=== PATIENT | male | born 1940 | race Caucasian/White ===

== ENCOUNTER 2019-03-12 16:09 | Inpatient (IN) ==
[2019-03-12] MEDS ORDERED: ATROPINE 1 MG/10 ML SYRINGE ONE (16:35)
[2019-03-12] MEDS ORDERED: ATROPINE 1 MG/10 ML SYRINGE IV STA (16:42)
[2019-03-12] MEDS ORDERED: DOPamine 800 MG/250 ML PREMIX IV PRN (16:42)
[2019-03-12] MEDS ORDERED: NOREPINEPHRINE 8 MG in SODIUM CHLORIDE 0.9% 242 ML IV PRN (16:44)
[2019-03-12] MEDS ORDERED: NOREPINEPHRINE 4 MG/4 ML VIAL IV ONE (16:44)
[2019-03-12] MEDS ORDERED: VANCOMYCIN INJ 1,000 MG in SODIUM CHLORIDE 0.9% 250 ML IV STA (16:50)
[2019-03-12 17:00] LABS: ABG Base Excess -26.7 MMOL/L (-2.5-2.5); ABG HCO3 6.2 MMOL/L (20-26); ABG Oxygen Saturation 93.9 % (95-100); ABG PCO2 38.2 MM HG (35-48); ABG PO2 90.2 MM HG (80-95); ABG TCO2 6.8 MMOL/L (23-27); Allen Test Positive; Pt O2 Delivery Device Ventilator
[2019-03-12 17:01] LABS: ABG PH 6.844 (7.35-7.45)
[2019-03-12] MEDS ORDERED: SODIUM BICARBONATE 50 MEQ/50 ML SYRINGE IV ONE ×2 (17:06→17:51)
[2019-03-12 17:14] LABS: Basophils % 0.4 % (0.0-0.8); Hematocrit 33.5 VOL% (42.0-52.0); Hemoglobin 10.6 GM/DL (14.0-18.0); Immature Granulocytes % 2.1 %; Immature Granulocytes Absolute 0.12 #; Lymphocytes # 0.5 10*3/uL (1.4-4.0); Lymphocytes % 9.5 % (21.2-54.2); Mean Corpuscular HGB Conc 31.6 GM/DL (32-36); Mean Corpuscular Volume 103.7 FL (87-102); Mean Platelet Volume 11.3 FL (9.6-12.0); Monocytes % 5.8 % (1.7-12.7); NRBC # 0.07 10*3/uL; Neutrophils % 82.2 % (38.7-73.9); Red Blood Count 3.23 MC/CUMM (3.8-5.5); Red Cell Distribution Width 14.4 % (9.3-17.3); White Blood Count 5.7 T/CUMM (4-12)
[2019-03-12 17:19] LABS: Platelet Count 74 T/CUMM (130-400)
[2019-03-12 17:22] LABS: INR 1.1; PT Patient Result 12.1 SECS (9.6-12.2)
[2019-03-12 17:33] LABS: Band Neutrophils 2 % (0-10); Lymphocytes 7 % (20-55); Nucleated Red Blood Cells 1 (0-5); Segmented Neutrophils 86 % (50-85); Total Cells Counted 100
[2019-03-12 17:34] LABS: Burr Cells 1+; Platelet Estimate Decreased
[2019-03-12] MEDS ORDERED: ALBUTEROL NEB SOLN 5 MG/ML 20 ML/BOTTLE CONT NEB STA ×2 (17:44→17:56)
[2019-03-12] MEDS ORDERED: DEXTROSE 50% 25 GM/50 ML VIAL IV STA (17:44)
[2019-03-12] MEDS ORDERED: INSULIN REGULAR 100 UNIT/ML IV STA (17:44)
[2019-03-12] MEDS ORDERED: CALCIUM CHLORIDE 1,000 MG/10 ML SYRINGE IV STA (17:44)
[2019-03-12] MEDS ORDERED: DEXTROSE 50% 25 GM/50 ML SYRINGE IV ONE (17:51)
[2019-03-12] MEDS ORDERED: LORazepam INJ 40 MG in DEXTROSE 5% 30 ML IV PRN (17:53)
[2019-03-12] MEDS ORDERED: PHENYLEPHRINE DRIP 40 MG/250 ML PREMIX IV PRN (17:53)
[2019-03-12] MEDS ORDERED: ALBUTEROL 2.5 MG/3 ML NEB RESP TX PRN (17:53)
[2019-03-12 17:55] LABS: Blood Urea Nitrogen 152 MG/DL (7-18); Calcium 7.2 MG/DL (8.5-10.1)
[2019-03-12 17:56] LABS: Albumin 3.4 G/DL (3.4-5.0); Glucose 281 MG/DL (74-106); Osmolality,Calculated 329.1 MOS/KG (273-304)
[2019-03-12 17:57] LABS: Alanine Aminotransferase 30 U/L (16-61); Alkaline Phosphatase 126 U/L (45-117); Aspartate Amino Transferase 45 U/L (0-37); Bilirubin,Total < 0.39 MG/DL (0.2-1.0); Total Protein 6.7 G/DL (6.4-8.3); Troponin I 0.027 NG/ML (0.00-0.045)
[2019-03-12] MEDS: SODIUM BICARB INJ 100 MEQ in DEXTROSE 5% 1,000 ML IV SCH ×2 (17:57→18:09)
[2019-03-12 17:58] LABS: CKMB % 4.1 %
[2019-03-12] MEDS ORDERED: SODIUM CHLORIDE 0.9% 3,800 ML IV ONE (17:58)
[2019-03-12] MEDS ORDERED: SODIUM CHLORIDE 0.9% 1,000 ML IV SCH (18:00)
[2019-03-12] MEDS ORDERED: SODIUM BICARBONATE 50 MEQ/50 ML VIAL IV STA (18:00)
[2019-03-12] MEDS: FAMOTIDINE 20 MG/2 ML VIAL IV SCH (18:09)
[2019-03-12] MEDS: MIDAZOLAM 100 MG in SODIUM CHLORIDE 0.9% 80 ML IV PRN (18:23)
[2019-03-12] MEDS ORDERED: AZTREONAM 2,000 MG in SODIUM CHLORIDE 0.9% 100 ML IV ONE (18:30)
[2019-03-12] MEDS: AZTREONAM 1,000 MG in SODIUM CHLORIDE 0.9% 100 ML IV SCH ×2 (18:56→19:05)
[2019-03-12] MEDS: HEPARIN 5,000 UNIT/1 ML VIAL SUBCUT SCH (19:02)
[2019-03-12] MEDS ORDERED: SODIUM POLYSTYRENE SULFATE 15 GM/60 ML BOTTLE RECTAL ONE (19:08)
[2019-03-12] MEDS ORDERED: GLUCAGON 1 MG VIAL IM PRN (19:10)
[2019-03-12] MEDS ORDERED: DEXTROSE 50% 25 GM/50 ML VIAL IV PRN (19:10)
[2019-03-12] MEDS: ALBUTEROL/IPRATROPIUM 3 ML NEB RESP TX SCH (19:17)
[2019-03-12] MEDS ORDERED: VANCOMYCIN INJ 2,500 MG in SODIUM CHLORIDE 0.9% 500 ML IV ONE (19:30)
[2019-03-12] MEDS ORDERED: LEVOFLOXACIN INJ 750 MG in PREMIX 1 EACH IV ONE (19:30)
[2019-03-12] MEDS ORDERED: VANCOMYCIN INJ 1,500 MG in SODIUM CHLORIDE 0.9% 500 ML IV ONE (19:30)
[2019-03-12 20:12] LABS: ABG Base Excess -23.9 MMOL/L (-2.5-2.5); ABG HCO3 7.7 MMOL/L (20-26); ABG Oxygen Saturation 96.3 % (95-100); ABG PCO2 35.2 MM HG (35-48); ABG TCO2 7.7 MMOL/L (23-27); Allen Test Positive; Pt O2 Delivery Device Ventilator
[2019-03-12] MEDS ORDERED: DEXTROSE 10% 250 ML IV PRN (20:12)
[2019-03-12 20:16] LABS: ABG PH 6.949 (7.35-7.45)
[2019-03-12] MEDS ORDERED: SODIUM BICARBONATE 50 MEQ/50 ML VIAL IV ONE (20:28)
[2019-03-12] MEDS: SODIUM BICARB INJ 100 MEQ in SODIUM CHLORIDE 0.45% 1,000 ML IV SCH (21:50)
[2019-03-12] MEDS ORDERED: SODIUM POLYSTYRENE SULFATE 15 GM/60 ML BOTTLE PO ONE (22:00)
[2019-03-12 22:01] LABS: Allen Test Positive; Pt O2 Delivery Device Ventilator
[2019-03-12 22:03] LABS: ABG Base Excess -21.7 MMOL/L (-2.5-2.5); ABG HCO3 8.9 MMOL/L (20-26); ABG Oxygen Saturation 96.7 % (95-100); ABG PCO2 34.2 MM HG (35-48); ABG PO2 99.6 MM HG (80-95); ABG TCO2 8.5 MMOL/L (23-27)
[2019-03-12 22:05] LABS: ABG PH 7.013 (7.35-7.45)
[2019-03-12 22:10] LABS: Calcium 7.6 MG/DL (8.5-10.1); Osmolality,Calculated 339.3 MOS/KG (273-304)
[2019-03-13] MEDS: NOREPINEPHRINE 16 MG in SODIUM CHLORIDE 0.9% 242 ML IV PRN ×2 (01:30→12:45)
[2019-03-13] MEDS: ALBUTEROL/IPRATROPIUM 3 ML NEB RESP TX SCH ×4 (01:41→19:05)
[2019-03-13] MEDS: INSULIN REGULAR 100 UNIT/ML SUBCUT SCH ×4 (02:04→18:36)
[2019-03-13] MEDS: AZTREONAM 1,000 MG in SODIUM CHLORIDE 0.9% 100 ML IV SCH ×4 (02:06→19:06)
[2019-03-13] MEDS: HEPARIN 5,000 UNIT/1 ML VIAL SUBCUT SCH ×3 (02:07→19:06)
[2019-03-13 03:35] LABS: ABG Base Excess -20.8 MMOL/L (-2.5-2.5); ABG HCO3 9.4 MMOL/L (20-26); ABG Oxygen Saturation 97.3 % (95-100); ABG PCO2 31.4 MM HG (35-48); ABG TCO2 8.5 MMOL/L (23-27); Allen Test Positive; Pt O2 Delivery Device Ventilator
[2019-03-13 03:42] LABS: ABG PH 7.056 (7.35-7.45)
[2019-03-13 04:33] LABS: Basophils % 0.4 % (0.0-0.8); Hematocrit 30.8 VOL% (42.0-52.0); Hemoglobin 10.2 GM/DL (14.0-18.0); Lymphocytes # 0.4 10*3/uL (1.4-4.0); Lymphocytes % 8.6 % (21.2-54.2); Mean Corpuscular HGB Conc 33.1 GM/DL (32-36); Mean Corpuscular Volume 100.3 FL (87-102); Mean Platelet Volume 11.8 FL (9.6-12.0); Monocytes % 6.4 % (1.7-12.7); NRBC # 0.09 10*3/uL; Neutrophils % 82.6 % (38.7-73.9); Platelet Count 70 T/CUMM (130-400); Red Blood Count 3.07 MC/CUMM (3.8-5.5); Red Cell Distribution Width 14.3 % (9.3-17.3)
[2019-03-13 04:55] LABS: Hypochromasia 1+; Platelet Estimate Decreased
[2019-03-13 05:02] LABS: Bilirubin,Total 0.4 MG/DL (0.2-1.0); Calcium 7.2 MG/DL (8.5-10.1); Osmolality,Calculated 334.4 MOS/KG (273-304)
[2019-03-13] MEDS ORDERED: SODIUM BICARBONATE 50 MEQ/50 ML VIAL IV ONE (06:03)
[2019-03-13] MEDS: SODIUM BICARB INJ 100 MEQ in SODIUM CHLORIDE 0.45% 1,000 ML IV SCH ×2 (07:03→07:25)
[2019-03-13] MEDS: SODIUM BICARB INJ 150 MEQ in STERILE WATER INJ 850 ML IV SCH ×2 (14:45→22:54)
[2019-03-13] MEDS ORDERED: TRACE ELEMENTS (5) 1 ML, MULTIVITAMIN INJ 10 ML in AMINO ACIDS 10% 700 ML, DEXTROSE 70%... IV SCH (17:00)
[2019-03-13] MEDS ORDERED: DEXTROSE 10% 1,000 ML IV PRN (17:00)
[2019-03-13] MEDS: FAMOTIDINE 20 MG/2 ML VIAL IV SCH (18:43)
[2019-03-13] MEDS: MIDAZOLAM 100 MG in SODIUM CHLORIDE 0.9% 80 ML IV PRN (20:20)
[2019-03-14] MEDS: ALBUTEROL/IPRATROPIUM 3 ML NEB RESP TX SCH ×5 (00:28→20:31)
[2019-03-14] MEDS: INSULIN REGULAR 100 UNIT/ML SUBCUT SCH ×5 (00:44→23:41)
[2019-03-14] MEDS: AZTREONAM 1,000 MG in SODIUM CHLORIDE 0.9% 100 ML IV SCH ×4 (01:01→20:55)
[2019-03-14] MEDS: fentaNYL INJ 1,250 MCG in SODIUM CHLORIDE 0.9% 225 ML IV PRN ×3 (02:26→21:26)
[2019-03-14] MEDS: HEPARIN 5,000 UNIT/1 ML VIAL SUBCUT SCH (03:42)
[2019-03-14 04:05] LABS: Basophils % 0.2 % (0.0-0.8); Eosinophils % 0.5 % (0.00-10.9); Hematocrit 27.3 VOL% (42.0-52.0); Immature Granulocytes % 0.7 %; Immature Granulocytes Absolute 0.03 #; Lymphocytes # 0.4 10*3/uL (1.4-4.0); Lymphocytes % 9.6 % (21.2-54.2); Mean Corpuscular Volume 99.3 FL (87-102); Mean Platelet Volume 11.9 FL (9.6-12.0); Monocytes % 9.3 % (1.7-12.7); NRBC # 0.04 10*3/uL; Neutrophils % 79.7 % (38.7-73.9); Platelet Count 62 T/CUMM (130-400); Red Blood Count 2.75 MC/CUMM (3.8-5.5); Red Cell Distribution Width 14.8 % (9.3-17.3); White Blood Count 4.3 T/CUMM (4-12)
[2019-03-14 04:24] LABS: ABG Base Excess -13.7 MMOL/L (-2.5-2.5); ABG HCO3 13.8 MMOL/L (20-26); ABG Oxygen Saturation 92.7 % (95-100); ABG PCO2 39.1 MM HG (35-48); ABG PO2 76.4 MM HG (80-95); ABG TCO2 13.5 MMOL/L (23-27); Allen Test Positive; Pt O2 Delivery Device Ventilator
[2019-03-14 04:29] LABS: Albumin 2.5 G/DL (3.4-5.0); Bilirubin,Total 0.4 MG/DL (0.2-1.0); Calcium 6.5 MG/DL (8.5-10.1); Total Protein 5.5 G/DL (6.4-8.3)
[2019-03-14 04:30] LABS: Prealbumin 14.3 MG/DL (20-40)
[2019-03-14 04:56] LABS: Band Neutrophils 1 % (0-10); Eosinophils 1 % (0-10); Lymphocytes 12 % (20-55); Nucleated Red Blood Cells 2 (0-5); Segmented Neutrophils 82 % (50-85); Total Cells Counted 100
[2019-03-14 05:04] LABS: Hypochromasia Slight; Platelet Estimate Decreased
[2019-03-14 06:20] LABS: HDL Cholesterol 21 MG/DL (40-60); Risk Ratio 2.38; Triglycerides 130 MG/DL (2-150)
[2019-03-14] MEDS: SODIUM BICARB INJ 150 MEQ in STERILE WATER INJ 850 ML IV SCH ×3 (07:07→15:44)
[2019-03-14] MEDS: MIDAZOLAM 100 MG in SODIUM CHLORIDE 0.9% 80 ML IV PRN ×2 (07:25→23:35)
[2019-03-14] MEDS ORDERED: VANCOMYCIN INJ 1,000 MG in SODIUM CHLORIDE 0.9% 250 ML IV PRN (11:39)
[2019-03-14] MEDS: FAT EMULSION 20% 250 ML IV SCH (14:05)
[2019-03-14 15:13] LABS: Hepatitis B Core IgM Quant 0.18 Index; Hepatitis B Surface Ag Quant < 0.10 Index; Hepatitis B Surface Ag Result Negative (Negative); Hepatitis C Virus Ab Quant 0.06 Index; Hepatitis C Virus Ab Result Negative (Negative)
[2019-03-14] MEDS ORDERED: VANCOMYCIN INJ 1,000 MG in SODIUM CHLORIDE 0.9% 250 ML IV ONE (17:00)
[2019-03-14] MEDS ORDERED: TRACE ELEMENTS (5) 1 ML, MULTIVITAMIN INJ 10 ML, INSULIN REGULAR 50 UNIT in AMINO ACIDS... IV SCH (17:00)
[2019-03-14] MEDS ORDERED: TRACE ELEMENTS (5) 1 ML, MULTIVITAMIN INJ 10 ML in AMINO ACIDS 10% 700 ML, DEXTROSE 70%... IV SCH (17:00)
[2019-03-14] MEDS: FAMOTIDINE 20 MG/2 ML VIAL IV SCH (17:29)
[2019-03-14] MEDS ORDERED: HEPARIN 10,000 UNIT/10 ML VIAL IV PRN (17:37)
[2019-03-14] MEDS: NOREPINEPHRINE 16 MG in SODIUM CHLORIDE 0.9% 234 ML IV PRN (18:43)
[2019-03-14] MEDS: LEVOFLOXACIN INJ 500 MG in PREMIX 1 EACH IV SCH (20:55)
[2019-03-15] MEDS: SODIUM BICARB INJ 150 MEQ in STERILE WATER INJ 850 ML IV SCH ×4 (00:39→18:28)
[2019-03-15] MEDS: AZTREONAM 1,000 MG in SODIUM CHLORIDE 0.9% 100 ML IV SCH ×3 (00:41→18:09)
[2019-03-15] MEDS: ALBUTEROL/IPRATROPIUM 3 ML NEB RESP TX SCH ×4 (01:03→18:53)
[2019-03-15] MEDS: fentaNYL INJ 1,250 MCG in SODIUM CHLORIDE 0.9% 225 ML IV PRN ×3 (02:28→13:52)
[2019-03-15 04:06] LABS: Basophils % 0.6 % (0.0-0.8); Eosinophils # 0.1 10*3/uL (0.0-0.87); Eosinophils % 2.3 % (0.00-10.9); Hematocrit 29.9 VOL% (42.0-52.0); Hemoglobin 10.3 GM/DL (14.0-18.0); Immature Granulocytes % 1.5 %; Immature Granulocytes Absolute 0.07 #; Lymphocytes # 0.8 10*3/uL (1.4-4.0); Lymphocytes % 17.6 % (21.2-54.2); Mean Corpuscular HGB Conc 34.4 GM/DL (32-36); Mean Corpuscular Volume 96.5 FL (87-102); Mean Platelet Volume 11.9 FL (9.6-12.0); Monocytes % 12.1 % (1.7-12.7); NRBC # 0.09 10*3/uL; Neutrophils % 65.9 % (38.7-73.9); Red Cell Distribution Width 14.7 % (9.3-17.3); White Blood Count 4.7 T/CUMM (4-12)
[2019-03-15 04:07] LABS: Platelet Count 40 T/CUMM (130-400)
[2019-03-15 04:21] LABS: Alanine Aminotransferase 18 U/L (16-61); Alkaline Phosphatase 79 U/L (45-117); Aspartate Amino Transferase 20 U/L (0-37); Bilirubin,Total < 0.39 MG/DL (0.2-1.0); Blood Urea Nitrogen 110 MG/DL (7-18); Calcium 6.5 MG/DL (8.5-10.1); Glucose 215 MG/DL (74-106); Osmolality,Calculated 319.4 MOS/KG (273-304); Total Protein 5.2 G/DL (6.4-8.3)
[2019-03-15] MEDS: INSULIN REGULAR 100 UNIT/ML SUBCUT SCH ×3 (05:45→18:34)
[2019-03-15 06:28] LABS: Band Neutrophils 1 % (0-10); Eosinophils 2 % (0-10); Hypochromasia 1+; Lymphocytes 15 % (20-55); Microcytosis Slight; Nucleated Red Blood Cells 1 (0-5); Ovalocytes Slight; Segmented Neutrophils 76 % (50-85); Total Cells Counted 100
[2019-03-15 06:29] LABS: Platelet Estimate Decreased; Tear Drop Cells Slight
[2019-03-15] MEDS: NOREPINEPHRINE 16 MG in SODIUM CHLORIDE 0.9% 234 ML IV PRN (07:00)
[2019-03-15 07:19] LABS: ABG Base Excess -2.9 MMOL/L (-2.5-2.5); ABG HCO3 21.9 MMOL/L (20-26); ABG Oxygen Saturation 96.2 % (95-100); ABG PCO2 39.3 MM HG (35-48); ABG PO2 83.9 MM HG (80-95); ABG TCO2 20.4 MMOL/L (23-27); Allen Test Positive; Pt O2 Delivery Device Ventilator
[2019-03-15] MEDS: MIDAZOLAM 100 MG in SODIUM CHLORIDE 0.9% 80 ML IV PRN (09:17)
[2019-03-15] MEDS ORDERED: SODIUM CHLORIDE 0.9% 1,000 ML IV PRN (13:40)
[2019-03-15] MEDS: FAT EMULSION 20% 250 ML IV SCH (14:28)
[2019-03-15] MEDS ORDERED: ELECTROLYTE CONCENTRATE 40 ML, TRACE ELEMENTS (5) 1 ML, MULTIVITAMIN INJ 10 ML, INSULIN... IV SCH (17:00)
[2019-03-15] MEDS ORDERED: VANCOMYCIN INJ 1,000 MG in SODIUM CHLORIDE 0.9% 250 ML IV ONE (17:00)
[2019-03-15] MEDS ORDERED: DIGOXIN 0.5 MG/2 ML AMP IV ONE (17:03)
[2019-03-15] MEDS: FAMOTIDINE 20 MG/2 ML VIAL IV SCH (18:09)
[2019-03-15 19:31] LABS: Basophils % 0.6 % (0.0-0.8); Eosinophils # 0.1 10*3/uL (0.0-0.87); Eosinophils % 1.2 % (0.00-10.9); Hematocrit 27.4 VOL% (42.0-52.0); Hemoglobin 9.3 GM/DL (14.0-18.0); Immature Granulocytes % 1.7 %; Immature Granulocytes Absolute 0.11 #; Lymphocytes # 0.7 10*3/uL (1.4-4.0); Lymphocytes % 10.5 % (21.2-54.2); Mean Corpuscular HGB Conc 33.9 GM/DL (32-36); Mean Corpuscular Volume 98.9 FL (87-102); Mean Platelet Volume 11.8 FL (9.6-12.0); Monocytes % 9.6 % (1.7-12.7); NRBC # 0.04 10*3/uL; Neutrophils % 76.4 % (38.7-73.9); Platelet Count 65 T/CUMM (130-400); Red Blood Count 2.77 MC/CUMM (3.8-5.5); White Blood Count 6.5 T/CUMM (4-12)
[2019-03-15 19:48] LABS: Calcium 6.7 MG/DL (8.5-10.1); Osmolality,Calculated 305.8 MOS/KG (273-304)
[2019-03-15 19:53] LABS: Eosinophils 3 % (0-10); Hypochromasia Slight; Lymphocytes 14 % (20-55); Nucleated Red Blood Cells 1 (0-5); Platelet Estimate Decreased; Segmented Neutrophils 79 % (50-85); Total Cells Counted 100
[2019-03-16] MEDS: AZTREONAM 1,000 MG in SODIUM CHLORIDE 0.9% 100 ML IV SCH ×4 (00:24→17:01)
[2019-03-16] MEDS: INSULIN REGULAR 100 UNIT/ML SUBCUT SCH ×2 (00:24→06:10)
[2019-03-16] MEDS: ALBUTEROL/IPRATROPIUM 3 ML NEB RESP TX SCH ×4 (01:45→19:37)
[2019-03-16] MEDS: SODIUM BICARB INJ 150 MEQ in STERILE WATER INJ 850 ML IV SCH ×5 (03:15→21:20)
[2019-03-16 03:41] LABS: ABG Base Excess 0.5 MMOL/L (-2.5-2.5); ABG HCO3 25.6 MMOL/L (20-26); ABG Oxygen Saturation 94.5 % (95-100); ABG PCO2 43.3 MM HG (35-48); ABG PO2 80.7 MM HG (80-95); Allen Test Positive; Pt O2 Delivery Device Ventilator
[2019-03-16 04:25] LABS: Basophils % 0.3 % (0.0-0.8); Eosinophils # 0.1 10*3/uL (0.0-0.87); Eosinophils % 1.4 % (0.00-10.9); Hematocrit 25.9 VOL% (42.0-52.0); Hemoglobin 8.7 GM/DL (14.0-18.0); Immature Granulocytes % 1.3 %; Immature Granulocytes Absolute 0.09 #; Lymphocytes # 0.8 10*3/uL (1.4-4.0); Lymphocytes % 10.5 % (21.2-54.2); Mean Corpuscular HGB Conc 33.6 GM/DL (32-36); Mean Corpuscular Volume 98.5 FL (87-102); Mean Platelet Volume 11.9 FL (9.6-12.0); Monocytes % 8.6 % (1.7-12.7); NRBC # 0.05 10*3/uL; Neutrophils % 77.9 % (38.7-73.9); Platelet Count 61 T/CUMM (130-400); Red Blood Count 2.63 MC/CUMM (3.8-5.5); Red Cell Distribution Width 14.9 % (9.3-17.3); White Blood Count 7.1 T/CUMM (4-12)
[2019-03-16 04:50] LABS: Bilirubin,Total 0.4 MG/DL (0.2-1.0); Calcium 6.9 MG/DL (8.5-10.1); Osmolality,Calculated 316.5 MOS/KG (273-304); Total Protein 5.6 G/DL (6.4-8.3)
[2019-03-16 04:51] LABS: Band Neutrophils 3 % (0-10); Eosinophils 3 % (0-10); Hypochromasia 1+; Lymphocytes 13 % (20-55); Microcytosis Slight; Platelet Estimate Decreased; Segmented Neutrophils 72 % (50-85); Total Cells Counted 100
[2019-03-16] MEDS ORDERED: POTASSIUM CHLORIDE 20 MEQ/15 ML UDCUP PER TUBE ONE (09:00)
[2019-03-16] MEDS ORDERED: DEXTROSE 50% 25 GM/50 ML VIAL IV PRN (10:07)
[2019-03-16] MEDS ORDERED: SODIUM CHLORIDE 0.9% 1,000 ML IV PRN (10:12)
[2019-03-16] MEDS: INSULIN LISPRO 100 UNIT/ML SUBCUT SCH ×3 (11:59→21:19)
[2019-03-16] MEDS: SODIUM CHLORIDE 0.9% 250 ML IV SCH (15:20)
[2019-03-16] MEDS: FAT EMULSION 20% 250 ML IV SCH (15:45)
[2019-03-16] MEDS ORDERED: ELECTROLYTE CONCENTRATE 40 ML, TRACE ELEMENTS (5) 1 ML, MULTIVITAMIN INJ 10 ML, INSULIN... IV SCH (17:00)
[2019-03-16] MEDS: FAMOTIDINE 20 MG/2 ML VIAL IV SCH (17:01)
[2019-03-16] MEDS: LEVOFLOXACIN INJ 500 MG in PREMIX 1 EACH IV SCH (21:20)
[2019-03-16] MEDS ORDERED: MORPHINE 4 MG/1 ML VIAL IV PRN (22:27)
[2019-03-16] MEDS: PROPOFOL 1,000 MG/100 ML BOTTLE IV SCH (23:41)
[2019-03-17] MEDS: AZTREONAM 1,000 MG in SODIUM CHLORIDE 0.9% 100 ML IV SCH ×5 (00:17→23:01)
[2019-03-17] MEDS: INSULIN LISPRO 100 UNIT/ML SUBCUT SCH ×6 (00:17→20:23)
[2019-03-17] MEDS: ALBUTEROL/IPRATROPIUM 3 ML NEB RESP TX SCH ×4 (00:50→19:30)
[2019-03-17 02:55] LABS: Apearance,Urine Slightly Hazy (Clear); Bilirubin,Urine Negative (Negative); Blood, Urine Large mg/dL (Negative); Glucose,Urine (UA) Negative (Negative); Ketones,Urine Negative (Negative); Mucus,Urine Occasional /LPF (Occasional); Nitrite,Urine Negative (Negative); Protein,Urine Negative; RBC,Urine 134 /HPF (0-4); Urine Color Yellow (Yellow); Urine Specific Gravity 1.014 (1.001-1.035); Urine Urobilinogen < 2.0 EU/DL (0.2-1.0); WBC,Urine 19 /HPF (0-6)
[2019-03-17 03:41] LABS: ABG Base Excess 3.6 MMOL/L (-2.5-2.5); ABG HCO3 28.2 MMOL/L (20-26); ABG Oxygen Saturation 97.7 % (95-100); ABG PCO2 42.9 MM HG (35-48); ABG PH 7.435 (7.35-7.45); ABG PO2 137.3 MM HG (80-95); ABG TCO2 29.5 MMOL/L (23-27); Allen Test Positive; Pt O2 Delivery Device Ventilator
[2019-03-17] MEDS: SODIUM CHLORIDE 0.9% 250 ML IV SCH (05:30)
[2019-03-17 05:46] LABS: Basophils % 0.3 % (0.0-0.8); Eosinophils # 0.1 10*3/uL (0.0-0.87); Eosinophils % 1.9 % (0.00-10.9); Hematocrit 23.5 VOL% (42.0-52.0); Hemoglobin 7.8 GM/DL (14.0-18.0); Immature Granulocytes % 1.7 %; Immature Granulocytes Absolute 0.12 #; Lymphocytes # 0.4 10*3/uL (1.4-4.0); Lymphocytes % 5.7 % (21.2-54.2); Mean Corpuscular HGB Conc 33.2 GM/DL (32-36); Mean Corpuscular Volume 99.6 FL (87-102); Mean Platelet Volume 11.1 FL (9.6-12.0); Monocytes % 6.7 % (1.7-12.7); NRBC # 0.05 10*3/uL; Neutrophils % 83.7 % (38.7-73.9); Platelet Count 94 T/CUMM (130-400); Red Blood Count 2.36 MC/CUMM (3.8-5.5); Red Cell Distribution Width 14.7 % (9.3-17.3); White Blood Count 6.9 T/CUMM (4-12)
[2019-03-17 06:08] LABS: Eosinophils 2 % (0-10); Lymphocytes 7 % (20-55); Nucleated Red Blood Cells 1 (0-5); Segmented Neutrophils 85 % (50-85); Total Cells Counted 100
[2019-03-17 06:09] LABS: Hypochromasia 1+; Microcytosis Slight; Ovalocytes Slight; Platelet Estimate Decreased
[2019-03-17 06:14] LABS: Alanine Aminotransferase 14 U/L (16-61); Albumin 1.7 G/DL (3.4-5.0); Alkaline Phosphatase 69 U/L (45-117); Aspartate Amino Transferase 16 U/L (0-37); Bilirubin,Total < 0.39 MG/DL (0.2-1.0); Blood Urea Nitrogen 114 MG/DL (7-18); Calcium 7.2 MG/DL (8.5-10.1); Glucose 274 MG/DL (74-106); Total Protein 5.3 G/DL (6.4-8.3)
[2019-03-17] MEDS: SODIUM BICARB INJ 150 MEQ in STERILE WATER INJ 850 ML IV SCH (06:24)
[2019-03-17] MEDS: PROPOFOL 1,000 MG/100 ML BOTTLE IV SCH ×3 (09:16→22:57)
[2019-03-17] MEDS ORDERED: POTASSIUM CHLORIDE 20 MEQ/15 ML UDCUP PER TUBE PRN (09:30)
[2019-03-17] MEDS: METOPROLOL TARTRATE 25 MG TABLET PO SCH ×2 (09:51→20:23)
[2019-03-17] MEDS: FAT EMULSION 20% 250 ML IV SCH (15:47)
[2019-03-17] MEDS: ELECTROLYTE CONCENTRATE 40 ML, TRACE ELEMENTS (5) 1 ML, MULTIVITAMIN INJ 10 ML, INSULIN... IV SCH (16:46)
[2019-03-17] MEDS ORDERED: VANCOMYCIN INJ 1,000 MG in SODIUM CHLORIDE 0.9% 250 ML IV ONE (18:00)
[2019-03-17] MEDS: FAMOTIDINE 20 MG/2 ML VIAL IV SCH (18:08)
[2019-03-17] MEDS ORDERED: SODIUM CHLORIDE 0.9% 250 ML IV ONE (19:12)
[2019-03-18] MEDS: INSULIN LISPRO 100 UNIT/ML SUBCUT SCH ×7 (00:09→23:43)
[2019-03-18] MEDS: ALBUTEROL/IPRATROPIUM 3 ML NEB RESP TX SCH ×4 (00:25→20:00)
[2019-03-18] MEDS: PROPOFOL 1,000 MG/100 ML BOTTLE IV SCH ×8 (02:01→22:56)
[2019-03-18 04:04] LABS: ABG Base Excess 3.5 MMOL/L (-2.5-2.5); ABG HCO3 27.5 MMOL/L (20-26); ABG Oxygen Saturation 97.6 % (95-100); ABG PCO2 42.3 MM HG (35-48); ABG PH 7.432 (7.35-7.45); ABG PO2 99.4 MM HG (80-95); ABG TCO2 24.3 MMOL/L (23-27); Pt O2 Delivery Device Ventilator
[2019-03-18 04:52] LABS: Basophils % 0.4 % (0.0-0.8); Eosinophils # 0.2 10*3/uL (0.0-0.87); Eosinophils % 3.2 % (0.00-10.9); Hematocrit 24.8 VOL% (42.0-52.0); Immature Granulocytes % 2.5 %; Immature Granulocytes Absolute 0.14 #; Lymphocytes # 0.6 10*3/uL (1.4-4.0); Lymphocytes % 10.5 % (21.2-54.2); Mean Corpuscular HGB Conc 32.3 GM/DL (32-36); Mean Corpuscular Volume 102.9 FL (87-102); Mean Platelet Volume 11.5 FL (9.6-12.0); Monocytes % 8.3 % (1.7-12.7); NRBC # 0.03 10*3/uL; Neutrophils % 75.1 % (38.7-73.9); Platelet Count 81 T/CUMM (130-400); Red Blood Count 2.41 MC/CUMM (3.8-5.5); Red Cell Distribution Width 14.8 % (9.3-17.3); White Blood Count 5.6 T/CUMM (4-12)
[2019-03-18 05:07] LABS: Albumin 1.5 G/DL (3.4-5.0); Bilirubin,Total 0.7 MG/DL (0.2-1.0); Calcium 7.9 MG/DL (8.5-10.1); Osmolality,Calculated 308.4 MOS/KG (273-304); Total Protein 5.4 G/DL (6.4-8.3)
[2019-03-18] MEDS ORDERED: POTASSIUM CHLORIDE 20 MEQ/15 ML UDCUP PER TUBE PRN (05:15)
[2019-03-18] MEDS: AZTREONAM 1,000 MG in SODIUM CHLORIDE 0.9% 100 ML IV SCH ×4 (05:25→23:43)
[2019-03-18 06:57] LABS: Anisocytosis Slight; Band Neutrophils 2 % (0-10); Eosinophils 1 % (0-10); Lymphocytes 5 % (20-55); Macrocytosis Slight; Metamyelocytes 1 %; Polychromasia Slight; Segmented Neutrophils 85 % (50-85); Total Cells Counted 100
[2019-03-18 06:59] LABS: Platelet Estimate Decreased; Tear Drop Cells Few
[2019-03-18] MEDS ORDERED: POTASSIUM CHLORIDE 20 MEQ/15 ML UDCUP PER TUBE ONE (08:21)
[2019-03-18] MEDS: METOPROLOL TARTRATE 25 MG TABLET PO SCH ×2 (08:56→20:00)
[2019-03-18] MEDS: ALBUMIN 25% 25 GM in PREMIX 1 EACH IV SCH ×2 (09:52→16:57)
[2019-03-18] MEDS: INSULIN GLARGINE 100 UNIT/ML SUBCUT SCH ×2 (12:22→20:00)
[2019-03-18] MEDS: FAT EMULSION 20% 250 ML IV SCH (14:00)
[2019-03-18] MEDS: ELECTROLYTE CONCENTRATE 40 ML, TRACE ELEMENTS (5) 1 ML, MULTIVITAMIN INJ 10 ML, INSULIN... IV SCH (17:36)
[2019-03-18] MEDS: FAMOTIDINE 20 MG/2 ML VIAL IV SCH (18:24)
[2019-03-18] MEDS: LEVOFLOXACIN INJ 500 MG in PREMIX 1 EACH IV SCH (19:58)
[2019-03-19] MEDS: ALBUMIN 25% 25 GM in PREMIX 1 EACH IV SCH ×3 (00:19→17:38)
[2019-03-19] MEDS: ALBUTEROL/IPRATROPIUM 3 ML NEB RESP TX SCH ×4 (01:21→19:03)
[2019-03-19] MEDS: PROPOFOL 1,000 MG/100 ML BOTTLE IV SCH ×7 (02:03→20:40)
[2019-03-19 04:07] LABS: Basophils % 0.2 % (0.0-0.8); Eosinophils # 0.2 10*3/uL (0.0-0.87); Eosinophils % 3.3 % (0.00-10.9); Hematocrit 24.7 VOL% (42.0-52.0); Hemoglobin 7.8 GM/DL (14.0-18.0); Lymphocytes # 0.7 10*3/uL (1.4-4.0); Lymphocytes % 13.4 % (21.2-54.2); Mean Corpuscular HGB Conc 31.6 GM/DL (32-36); Mean Corpuscular Volume 105.6 FL (87-102); Mean Platelet Volume 11.2 FL (9.6-12.0); Monocytes % 8.1 % (1.7-12.7); Platelet Count 69 T/CUMM (130-400); Red Blood Count 2.34 MC/CUMM (3.8-5.5); Red Cell Distribution Width 15.5 % (9.3-17.3); White Blood Count 4.9 T/CUMM (4-12)
[2019-03-19 04:23] LABS: Calcium 8.5 MG/DL (8.5-10.1); Osmolality,Calculated 316.1 MOS/KG (273-304)
[2019-03-19 04:50] LABS: Anisocytosis 1+; Band Neutrophils 2 % (0-10); Eosinophils 2 % (0-10); Lymphocytes 9 % (20-55); Segmented Neutrophils 83 % (50-85); Total Cells Counted 100
[2019-03-19 04:51] LABS: Platelet Estimate Decreased; Tear Drop Cells Few
[2019-03-19 05:05] LABS: ABG Base Excess 0.3 MMOL/L (-2.5-2.5); ABG HCO3 24.7 MMOL/L (20-26); ABG Oxygen Saturation 96.9 % (95-100); ABG PCO2 38.7 MM HG (35-48); ABG PH 7.423 (7.35-7.45); ABG PO2 98.7 MM HG (80-95); ABG TCO2 25.9 MMOL/L (23-27); Allen Test Positive; Pt O2 Delivery Device Ventilator
[2019-03-19] MEDS: INSULIN LISPRO 100 UNIT/ML SUBCUT SCH ×4 (05:46→23:33)
[2019-03-19] MEDS: AZTREONAM 1,000 MG in SODIUM CHLORIDE 0.9% 100 ML IV SCH ×4 (05:47→23:33)
[2019-03-19] MEDS: fentaNYL INJ 1,250 MCG in SODIUM CHLORIDE 0.9% 225 ML IV PRN (09:50)
[2019-03-19] MEDS: METOPROLOL TARTRATE 25 MG TABLET PO SCH ×2 (09:56→20:30)
[2019-03-19] MEDS: INSULIN GLARGINE 100 UNIT/ML SUBCUT SCH ×2 (09:56→20:30)
[2019-03-19] MEDS: FAMOTIDINE 20 MG/2 ML VIAL IV SCH (18:17)
[2019-03-20] MEDS: ALBUTEROL/IPRATROPIUM 3 ML NEB RESP TX SCH ×4 (00:25→19:14)
[2019-03-20] MEDS: PROPOFOL 1,000 MG/100 ML BOTTLE IV SCH ×6 (00:31→22:02)
[2019-03-20] MEDS: ALBUMIN 25% 25 GM in PREMIX 1 EACH IV SCH ×3 (00:50→17:15)
[2019-03-20] MEDS: fentaNYL INJ 1,250 MCG in SODIUM CHLORIDE 0.9% 225 ML IV PRN ×3 (03:05→20:20)
[2019-03-20 04:32] LABS: ABG Base Excess 0.5 MMOL/L (-2.5-2.5); ABG HCO3 24.9 MMOL/L (20-26); ABG Oxygen Saturation 96.5 % (95-100); ABG PCO2 47.1 MM HG (35-48); ABG PH 7.352 (7.35-7.45); ABG PO2 85.5 MM HG (80-95); ABG TCO2 25.3 MMOL/L (23-27); Allen Test Positive; Pt O2 Delivery Device Ventilator
[2019-03-20] MEDS: AZTREONAM 1,000 MG in SODIUM CHLORIDE 0.9% 100 ML IV SCH ×4 (05:02→23:30)
[2019-03-20 05:40] LABS: Basophils % 0.2 % (0.0-0.8); Eosinophils # 0.2 10*3/uL (0.0-0.87); Eosinophils % 3.7 % (0.00-10.9); Hematocrit 23.5 VOL% (42.0-52.0); Hemoglobin 7.3 GM/DL (14.0-18.0); Immature Granulocytes % 1.8 %; Immature Granulocytes Absolute 0.09 #; Lymphocytes # 0.6 10*3/uL (1.4-4.0); Lymphocytes % 11.5 % (21.2-54.2); Mean Corpuscular HGB Conc 31.1 GM/DL (32-36); Mean Corpuscular Volume 107.8 FL (87-102); Mean Platelet Volume 11.9 FL (9.6-12.0); Monocytes % 5.9 % (1.7-12.7); Neutrophils % 76.9 % (38.7-73.9); Platelet Count 62 T/CUMM (130-400); Red Blood Count 2.18 MC/CUMM (3.8-5.5); Red Cell Distribution Width 15.3 % (9.3-17.3); White Blood Count 4.9 T/CUMM (4-12)
[2019-03-20 06:16] LABS: Albumin 2.5 G/DL (3.4-5.0); Calcium 8.7 MG/DL (8.5-10.1)
[2019-03-20 06:19] LABS: Prealbumin 9.2 MG/DL (20-40)
[2019-03-20] MEDS: INSULIN LISPRO 100 UNIT/ML SUBCUT SCH ×4 (06:28→23:37)
[2019-03-20 06:52] LABS: Eosinophils 5 % (0-10); Lymphocytes 11 % (20-55); Segmented Neutrophils 80 % (50-85); Total Cells Counted 100
[2019-03-20 06:53] LABS: Anisocytosis 1+; Platelet Estimate Decreased; Tear Drop Cells Few
[2019-03-20] MEDS: DILTIAZEM 30 MG TABLET PO SCH ×3 (09:20→21:54)
[2019-03-20] MEDS: METOPROLOL TARTRATE 50 MG TABLET PO SCH ×2 (09:20→21:54)
[2019-03-20] MEDS: INSULIN GLARGINE 100 UNIT/ML SUBCUT SCH ×2 (09:20→21:55)
[2019-03-20] MEDS: FLUCONAZOLE INJ 200 MG in PREMIX 1 EACH IV SCH (09:45)
[2019-03-20] MEDS ORDERED: FUROSEMIDE 40 MG/4 ML VIAL IV ONE (10:11)
[2019-03-20] MEDS ORDERED: VANCOMYCIN INJ 1,000 MG in SODIUM CHLORIDE 0.9% 250 ML IV ONE (12:00)
[2019-03-20] MEDS: FAMOTIDINE 20 MG/2 ML VIAL IV SCH (18:05)
[2019-03-20] MEDS: LEVOFLOXACIN INJ 500 MG in PREMIX 1 EACH IV SCH (21:55)
[2019-03-21] MEDS: ALBUMIN 25% 25 GM in PREMIX 1 EACH IV SCH (00:05)
[2019-03-21] MEDS: ALBUTEROL/IPRATROPIUM 3 ML NEB RESP TX SCH ×4 (00:29→19:00)
[2019-03-21] MEDS: PROPOFOL 1,000 MG/100 ML BOTTLE IV SCH ×8 (01:50→23:59)
[2019-03-21 03:06] LABS: ABG Base Excess -3.3 MMOL/L (-2.5-2.5); ABG HCO3 21.5 MMOL/L (20-26); ABG PCO2 54.5 MM HG (35-48); ABG PH 7.261 (7.35-7.45); ABG PO2 62.6 MM HG (80-95); ABG TCO2 22.5 MMOL/L (23-27); Allen Test Positive; Pt O2 Delivery Device Ventilator
[2019-03-21] MEDS: fentaNYL INJ 1,250 MCG in SODIUM CHLORIDE 0.9% 225 ML IV PRN ×3 (05:00→22:11)
[2019-03-21 05:16] LABS: Basophils % 0.2 % (0.0-0.8); Eosinophils # 0.2 10*3/uL (0.0-0.87); Eosinophils % 3.7 % (0.00-10.9); Hematocrit 22.9 VOL% (42.0-52.0); Hemoglobin 7.1 GM/DL (14.0-18.0); Immature Granulocytes % 1.6 %; Immature Granulocytes Absolute 0.07 #; Lymphocytes # 0.3 10*3/uL (1.4-4.0); Lymphocytes % 6.9 % (21.2-54.2); Mean Corpuscular Volume 108.5 FL (87-102); Mean Platelet Volume 11.4 FL (9.6-12.0); Monocytes % 6.9 % (1.7-12.7); Neutrophils % 80.7 % (38.7-73.9); Platelet Count 64 T/CUMM (130-400); Red Blood Count 2.11 MC/CUMM (3.8-5.5); Red Cell Distribution Width 15.1 % (9.3-17.3); White Blood Count 4.3 T/CUMM (4-12)
[2019-03-21 05:32] LABS: Hypochromasia 1+; Microcytosis Slight
[2019-03-21 05:33] LABS: Ovalocytes Slight; Platelet Estimate Decreased
[2019-03-21 05:38] LABS: Calcium 8.5 MG/DL (8.5-10.1); Osmolality,Calculated 324.7 MOS/KG (273-304)
[2019-03-21 05:48] LABS: Albumin 2.6 G/DL (3.4-5.0); Calcium 8.6 MG/DL (8.5-10.1); Osmolality,Calculated 322.8 MOS/KG (273-304)
[2019-03-21] MEDS: AZTREONAM 1,000 MG in SODIUM CHLORIDE 0.9% 100 ML IV SCH ×4 (05:50→23:59)
[2019-03-21] MEDS: INSULIN LISPRO 100 UNIT/ML SUBCUT SCH ×4 (06:05→23:59)
[2019-03-21] MEDS: FLUCONAZOLE INJ 200 MG in PREMIX 1 EACH IV SCH (09:45)
[2019-03-21] MEDS: INSULIN GLARGINE 100 UNIT/ML SUBCUT SCH ×2 (09:45→20:37)
[2019-03-21] MEDS: DILTIAZEM 30 MG TABLET PO SCH ×3 (09:45→20:37)
[2019-03-21] MEDS: METOPROLOL TARTRATE 50 MG TABLET PO SCH ×2 (09:45→20:37)
[2019-03-21] MEDS ORDERED: SODIUM CHLORIDE 0.9% 1,000 ML IV PRN (11:07)
[2019-03-21] MEDS: POLYVINYL ALCOHOL 1.4% OPH SOLN 15 ML BOTTLE BOTH EYES SCH ×3 (12:25→23:13)
[2019-03-21] MEDS: FAMOTIDINE 20 MG/2 ML VIAL IV SCH (18:45)
[2019-03-22] MEDS: ALBUTEROL/IPRATROPIUM 3 ML NEB RESP TX SCH ×4 (01:38→19:49)
[2019-03-22 03:15] LABS: ABG Base Excess -4.4 MMOL/L (-2.5-2.5); ABG HCO3 22.3 MMOL/L (20-26); ABG PCO2 49.2 MM HG (35-48); ABG PH 7.275 (7.35-7.45); ABG PO2 131.7 MM HG (80-95); ABG TCO2 23.9 MMOL/L (23-27); Allen Test Positive; Pt O2 Delivery Device Ventilator
[2019-03-22 03:56] LABS: Basophils % 0.2 % (0.0-0.8); Eosinophils # 0.2 10*3/uL (0.0-0.87); Eosinophils % 4.3 % (0.00-10.9); Hemoglobin 8.5 GM/DL (14.0-18.0); Immature Granulocytes % 1.2 %; Immature Granulocytes Absolute 0.05 #; Lymphocytes # 0.5 10*3/uL (1.4-4.0); Lymphocytes % 10.7 % (21.2-54.2); Mean Corpuscular HGB Conc 30.4 GM/DL (32-36); Mean Corpuscular Volume 108.5 FL (87-102); Mean Platelet Volume 11.6 FL (9.6-12.0); Monocytes % 5.2 % (1.7-12.7); Neutrophils % 78.4 % (38.7-73.9); Platelet Count 83 T/CUMM (130-400); Red Blood Count 2.58 MC/CUMM (3.8-5.5); Red Cell Distribution Width 16.3 % (9.3-17.3); White Blood Count 4.2 T/CUMM (4-12)
[2019-03-22 04:19] LABS: Albumin 2.3 G/DL (3.4-5.0); Bilirubin,Total 0.7 MG/DL (0.2-1.0); Calcium 8.5 MG/DL (8.5-10.1); Osmolality,Calculated 326.7 MOS/KG (273-304); Total Protein 6.3 G/DL (6.4-8.3)
[2019-03-22 04:38] LABS: Anisocytosis 1+; Band Neutrophils 3 % (0-10); Eosinophils 5 % (0-10); Hypochromasia 1+; Lymphocytes 11 % (20-55); Microcytosis 1+; Platelet Estimate Decreased; Segmented Neutrophils 75 % (50-85); Total Cells Counted 100
[2019-03-22] MEDS: POLYVINYL ALCOHOL 1.4% OPH SOLN 15 ML BOTTLE BOTH EYES SCH ×4 (05:00→22:59)
[2019-03-22] MEDS: PROPOFOL 1,000 MG/100 ML BOTTLE IV SCH ×5 (05:10→22:59)
[2019-03-22] MEDS: INSULIN LISPRO 100 UNIT/ML SUBCUT SCH ×3 (06:08→18:23)
[2019-03-22] MEDS: AZTREONAM 1,000 MG in SODIUM CHLORIDE 0.9% 100 ML IV SCH ×3 (06:08→18:23)
[2019-03-22] MEDS ORDERED: FUROSEMIDE 40 MG/4 ML VIAL IV ONE (07:34)
[2019-03-22] MEDS: INSULIN GLARGINE 100 UNIT/ML SUBCUT SCH ×2 (09:09→20:57)
[2019-03-22] MEDS: METOPROLOL TARTRATE 50 MG TABLET PO SCH ×2 (09:09→20:58)
[2019-03-22] MEDS: DILTIAZEM 60 MG TABLET PO SCH ×3 (09:10→20:57)
[2019-03-22] MEDS: fentaNYL INJ 1,250 MCG in SODIUM CHLORIDE 0.9% 225 ML IV PRN ×2 (09:11→16:58)
[2019-03-22] MEDS: FLUCONAZOLE INJ 200 MG in PREMIX 1 EACH IV SCH (10:47)
[2019-03-22] MEDS ORDERED: VANCOMYCIN INJ 2,000 MG in SODIUM CHLORIDE 0.9% 500 ML IV PRN (12:21)
[2019-03-22] MEDS: LEVOFLOXACIN INJ 500 MG in PREMIX 1 EACH IV SCH (13:07)
[2019-03-22] MEDS: MUPIROCIN 2% OINT 22 GM TUBE TOP SCH ×2 (13:59→20:06)
[2019-03-22] MEDS ORDERED: VANCOMYCIN INJ 2,000 MG in SODIUM CHLORIDE 0.9% 500 ML IV ONE (14:00)
[2019-03-22] MEDS: FAMOTIDINE 20 MG/2 ML VIAL IV SCH (18:24)
[2019-03-23] MEDS: INSULIN LISPRO 100 UNIT/ML SUBCUT SCH ×4 (00:31→17:26)
[2019-03-23] MEDS: AZTREONAM 1,000 MG in SODIUM CHLORIDE 0.9% 100 ML IV SCH ×4 (00:31→17:47)
[2019-03-23] MEDS: ALBUTEROL/IPRATROPIUM 3 ML NEB RESP TX SCH ×4 (01:15→20:02)
[2019-03-23] MEDS: fentaNYL INJ 1,250 MCG in SODIUM CHLORIDE 0.9% 225 ML IV PRN ×3 (01:20→18:26)
[2019-03-23] MEDS: POLYVINYL ALCOHOL 1.4% OPH SOLN 15 ML BOTTLE BOTH EYES SCH ×4 (03:15→21:05)
[2019-03-23 04:14] LABS: Basophils % 0.2 % (0.0-0.8); Eosinophils # 0.2 10*3/uL (0.0-0.87); Eosinophils % 5.1 % (0.00-10.9); Hematocrit 27.4 VOL% (42.0-52.0); Hemoglobin 8.4 GM/DL (14.0-18.0); Immature Granulocytes Absolute 0.04 #; Lymphocytes # 0.6 10*3/uL (1.4-4.0); Lymphocytes % 13.5 % (21.2-54.2); Mean Corpuscular HGB Conc 30.7 GM/DL (32-36); Mean Corpuscular Volume 108.3 FL (87-102); Mean Platelet Volume 11.3 FL (9.6-12.0); Monocytes % 6.3 % (1.7-12.7); Neutrophils % 73.9 % (38.7-73.9); Platelet Count 114 T/CUMM (130-400); Red Blood Count 2.53 MC/CUMM (3.8-5.5); Red Cell Distribution Width 15.7 % (9.3-17.3); White Blood Count 4.1 T/CUMM (4-12)
[2019-03-23 04:21] LABS: ABG Base Excess -5.7 MMOL/L (-2.5-2.5); ABG HCO3 19.7 MMOL/L (20-26); ABG Oxygen Saturation 97.3 % (95-100); ABG PCO2 46.5 MM HG (35-48); ABG PH 7.266 (7.35-7.45); ABG TCO2 19.8 MMOL/L (23-27); Allen Test Positive; Pt O2 Delivery Device Ventilator
[2019-03-23 04:30] LABS: Prealbumin 7.1 MG/DL (20-40)
[2019-03-23] MEDS: PROPOFOL 1,000 MG/100 ML BOTTLE IV SCH ×5 (04:30→22:19)
[2019-03-23 04:36] LABS: Hypochromasia 1+
[2019-03-23 04:37] LABS: Microcytosis 1+
[2019-03-23 05:01] LABS: Calcium 8.4 MG/DL (8.5-10.1); Osmolality,Calculated 330.6 MOS/KG (273-304)
[2019-03-23] MEDS: INSULIN GLARGINE 100 UNIT/ML SUBCUT SCH ×2 (09:04→21:05)
[2019-03-23] MEDS: DILTIAZEM 60 MG TABLET PO SCH ×3 (09:04→21:05)
[2019-03-23] MEDS: METOPROLOL TARTRATE 50 MG TABLET PO SCH ×2 (09:04→21:05)
[2019-03-23] MEDS: MUPIROCIN 2% OINT 22 GM TUBE TOP SCH ×2 (09:05→21:05)
[2019-03-23] MEDS: FLUCONAZOLE INJ 200 MG in PREMIX 1 EACH IV SCH (10:19)
[2019-03-23] MEDS: FAMOTIDINE 20 MG/2 ML VIAL IV SCH (17:48)
[2019-03-23] MEDS ORDERED: VANCOMYCIN INJ 2,000 MG in SODIUM CHLORIDE 0.9% 500 ML IV SCH (20:00)
[2019-03-24] MEDS: INSULIN LISPRO 100 UNIT/ML SUBCUT SCH ×4 (00:31→18:34)
[2019-03-24] MEDS: AZTREONAM 1,000 MG in SODIUM CHLORIDE 0.9% 100 ML IV SCH ×2 (00:45→05:46)
[2019-03-24] MEDS: ALBUTEROL/IPRATROPIUM 3 ML NEB RESP TX SCH ×4 (01:19→19:08)
[2019-03-24] MEDS: fentaNYL INJ 1,250 MCG in SODIUM CHLORIDE 0.9% 225 ML IV PRN ×3 (03:44→22:08)
[2019-03-24] MEDS: POLYVINYL ALCOHOL 1.4% OPH SOLN 15 ML BOTTLE BOTH EYES SCH ×4 (04:14→21:59)
[2019-03-24 04:29] LABS: Allen Test Positive; Pt O2 Delivery Device Ventilator
[2019-03-24 04:30] LABS: ABG Base Excess -6.2 MMOL/L (-2.5-2.5); ABG HCO3 20.5 MMOL/L (20-26); ABG Oxygen Saturation 92.1 % (95-100); ABG PCO2 46.7 MM HG (35-48); ABG PH 7.261 (7.35-7.45); ABG PO2 73.6 MM HG (80-95)
[2019-03-24 04:45] LABS: Basophils % 0.2 % (0.0-0.8); Eosinophils # 0.3 10*3/uL (0.0-0.87); Eosinophils % 6.4 % (0.00-10.9); Hematocrit 26.9 VOL% (42.0-52.0); Hemoglobin 8.3 GM/DL (14.0-18.0); Immature Granulocytes Absolute 0.04 #; Lymphocytes # 0.5 10*3/uL (1.4-4.0); Lymphocytes % 11.3 % (21.2-54.2); Mean Corpuscular HGB Conc 30.9 GM/DL (32-36); Mean Corpuscular Volume 111.6 FL (87-102); Mean Platelet Volume 10.9 FL (9.6-12.0); Monocytes % 7.6 % (1.7-12.7); Neutrophils % 73.5 % (38.7-73.9); Platelet Count 153 T/CUMM (130-400); Red Blood Count 2.41 MC/CUMM (3.8-5.5); Red Cell Distribution Width 15.7 % (9.3-17.3); White Blood Count 4.1 T/CUMM (4-12)
[2019-03-24 05:02] LABS: Calcium 8.3 MG/DL (8.5-10.1)
[2019-03-24 05:32] LABS: Band Neutrophils 2 % (0-10); Eosinophils 5 % (0-10); Lymphocytes 13 % (20-55); Platelet Estimate Adequate; Polychromasia Few; Segmented Neutrophils 75 % (50-85); Total Cells Counted 100
[2019-03-24] MEDS: PROPOFOL 1,000 MG/100 ML BOTTLE IV SCH ×4 (05:49→23:39)
[2019-03-24] MEDS: SODIUM CHLORIDE 0.45% 1,000 ML IV SCH ×2 (08:13→15:59)
[2019-03-24] MEDS: METOCLOPRAMIDE 10 MG/2 ML VIAL IV SCH ×3 (09:58→21:56)
[2019-03-24] MEDS: MUPIROCIN 2% OINT 22 GM TUBE TOP SCH ×2 (09:58→21:58)
[2019-03-24] MEDS: INSULIN GLARGINE 100 UNIT/ML SUBCUT SCH ×2 (09:58→21:58)
[2019-03-24] MEDS: METOPROLOL TARTRATE 50 MG TABLET PO SCH ×2 (10:02→21:58)
[2019-03-24] MEDS: DILTIAZEM 60 MG TABLET PO SCH ×3 (10:03→21:57)
[2019-03-24] MEDS: FLUCONAZOLE INJ 200 MG in PREMIX 1 EACH IV SCH (10:03)
[2019-03-24] MEDS: LEVOFLOXACIN INJ 500 MG in PREMIX 1 EACH IV SCH (12:42)
[2019-03-24] MEDS: FAMOTIDINE 20 MG/2 ML VIAL IV SCH (18:34)
[2019-03-25] MEDS: SODIUM CHLORIDE 0.45% 1,000 ML IV SCH (00:27)
[2019-03-25] MEDS: INSULIN LISPRO 100 UNIT/ML SUBCUT SCH ×4 (00:30→18:27)
[2019-03-25] MEDS: METOCLOPRAMIDE 10 MG/2 ML VIAL IV SCH ×4 (01:58→21:05)
[2019-03-25] MEDS: ALBUTEROL/IPRATROPIUM 3 ML NEB RESP TX SCH ×4 (02:20→19:16)
[2019-03-25 04:02] LABS: ABG Base Excess -14.1 MMOL/L (-2.5-2.5); ABG PCO2 25.8 MM HG (35-48); ABG PH 7.271 (7.35-7.45); ABG PO2 59.8 MM HG (80-95); ABG TCO2 11.8 MMOL/L (23-27); Allen Test Positive; Pt O2 Delivery Device Ventilator
[2019-03-25 05:21] LABS: Basophils % 0.7 % (0.0-0.8); Eosinophils # 0.1 10*3/uL (0.0-0.87); Eosinophils % 3.2 % (0.00-10.9); Hematocrit 28.6 VOL% (42.0-52.0); Hemoglobin 8.6 GM/DL (14.0-18.0); Immature Granulocytes % 1.4 %; Immature Granulocytes Absolute 0.06 #; Lymphocytes # 0.6 10*3/uL (1.4-4.0); Lymphocytes % 14.2 % (21.2-54.2); Mean Corpuscular HGB Conc 30.1 GM/DL (32-36); Mean Corpuscular Volume 109.2 FL (87-102); Mean Platelet Volume 10.8 FL (9.6-12.0); Monocytes % 6.2 % (1.7-12.7); Neutrophils % 74.3 % (38.7-73.9); Platelet Count 192 T/CUMM (130-400); Red Blood Count 2.62 MC/CUMM (3.8-5.5); Red Cell Distribution Width 15.6 % (9.3-17.3); White Blood Count 4.4 T/CUMM (4-12)
[2019-03-25] MEDS: POLYVINYL ALCOHOL 1.4% OPH SOLN 15 ML BOTTLE BOTH EYES SCH ×4 (05:26→21:27)
[2019-03-25] MEDS: PROPOFOL 1,000 MG/100 ML BOTTLE IV SCH ×4 (05:26→20:45)
[2019-03-25 06:01] LABS: Osmolality,Calculated 346.2 MOS/KG (273-304)
[2019-03-25 06:05] LABS: Band Neutrophils 1 % (0-10); Eosinophils 2 % (0-10); Hypochromasia 1+; Lymphocytes 12 % (20-55); Myelocytes 1 %; Segmented Neutrophils 79 % (50-85); Total Cells Counted 100
[2019-03-25 06:06] LABS: Microcytosis 1+; Ovalocytes Slight; Platelet Estimate Adequate
[2019-03-25] MEDS: DEXTROSE 5% 1,000 ML IV SCH ×3 (09:02→21:46)
[2019-03-25] MEDS: DILTIAZEM 60 MG TABLET PO SCH ×3 (09:05→21:23)
[2019-03-25] MEDS: MUPIROCIN 2% OINT 22 GM TUBE TOP SCH ×2 (09:05→21:23)
[2019-03-25] MEDS: FLUCONAZOLE INJ 200 MG in PREMIX 1 EACH IV SCH (09:06)
[2019-03-25] MEDS: METOPROLOL TARTRATE 50 MG TABLET PO SCH ×2 (09:06→21:23)
[2019-03-25] MEDS: INSULIN GLARGINE 100 UNIT/ML SUBCUT SCH ×2 (09:06→21:23)
[2019-03-25] MEDS: fentaNYL INJ 1,250 MCG in SODIUM CHLORIDE 0.9% 225 ML IV PRN ×3 (09:26→20:46)
[2019-03-25] MEDS: DESMOPRESSIN 10 MCG NASAL SPRAY 5 ML BOTTLE ONE NARE SCH ×2 (09:28→21:23)
[2019-03-25 15:13] LABS: Calcium 8.2 MG/DL (8.5-10.1); Osmolality,Calculated 343.4 MOS/KG (273-304)
[2019-03-25] MEDS: FAMOTIDINE 20 MG/2 ML VIAL IV SCH (18:27)
[2019-03-26] MEDS: INSULIN LISPRO 100 UNIT/ML SUBCUT SCH ×4 (00:08→17:51)
[2019-03-26] MEDS: PROPOFOL 1,000 MG/100 ML BOTTLE IV SCH ×5 (00:10→22:14)
[2019-03-26] MEDS: ALBUTEROL/IPRATROPIUM 3 ML NEB RESP TX SCH ×4 (00:40→20:26)
[2019-03-26] MEDS: fentaNYL INJ 1,250 MCG in SODIUM CHLORIDE 0.9% 225 ML IV PRN ×4 (02:07→20:30)
[2019-03-26] MEDS: METOCLOPRAMIDE 10 MG/2 ML VIAL IV SCH ×4 (02:43→20:46)
[2019-03-26 03:17] LABS: ABG Base Excess -5.8 MMOL/L (-2.5-2.5); ABG HCO3 21.4 MMOL/L (20-26); ABG PCO2 51.1 MM HG (35-48); Allen Test Positive; Pt O2 Delivery Device Ventilator
[2019-03-26] MEDS: POLYVINYL ALCOHOL 1.4% OPH SOLN 15 ML BOTTLE BOTH EYES SCH ×4 (04:26→21:30)
[2019-03-26] MEDS: DEXTROSE 5% 1,000 ML IV SCH (04:26)
[2019-03-26 06:19] LABS: Calcium 8.3 MG/DL (8.5-10.1)
[2019-03-26 06:36] LABS: Basophils % 0.3 % (0.0-0.8); Eosinophils # 0.2 10*3/uL (0.0-0.87); Eosinophils % 5.7 % (0.00-10.9); Hematocrit 26.7 VOL% (42.0-52.0); Hemoglobin 7.9 GM/DL (14.0-18.0); Immature Granulocytes % 0.9 %; Immature Granulocytes Absolute 0.03 #; Lymphocytes # 0.7 10*3/uL (1.4-4.0); Lymphocytes % 19.9 % (21.2-54.2); Mean Corpuscular HGB Conc 29.6 GM/DL (32-36); Mean Corpuscular Volume 112.7 FL (87-102); Mean Platelet Volume 10.6 FL (9.6-12.0); Monocytes % 6.3 % (1.7-12.7); Neutrophils % 66.9 % (38.7-73.9); Platelet Count 200 T/CUMM (130-400); Red Blood Count 2.37 MC/CUMM (3.8-5.5); Red Cell Distribution Width 15.7 % (9.3-17.3); White Blood Count 3.5 T/CUMM (4-12)
[2019-03-26 06:48] LABS: Band Neutrophils 3 % (0-10); Eosinophils 5 % (0-10); Lymphocytes 17 % (20-55); Segmented Neutrophils 68 % (50-85); Total Cells Counted 100
[2019-03-26 06:49] LABS: Anisocytosis 2+; Macrocytosis 2+; Platelet Estimate Normal
[2019-03-26] MEDS: DESMOPRESSIN 10 MCG NASAL SPRAY 5 ML BOTTLE ONE NARE SCH ×2 (08:51→20:47)
[2019-03-26] MEDS: MUPIROCIN 2% OINT 22 GM TUBE TOP SCH ×2 (08:56→20:47)
[2019-03-26] MEDS: METOPROLOL TARTRATE 50 MG TABLET PO SCH ×2 (09:24→20:47)
[2019-03-26] MEDS: DILTIAZEM 60 MG TABLET PO SCH ×3 (09:24→20:47)
[2019-03-26] MEDS: INSULIN GLARGINE 100 UNIT/ML SUBCUT SCH ×2 (09:24→20:47)
[2019-03-26] MEDS: FLUCONAZOLE INJ 200 MG in PREMIX 1 EACH IV SCH (09:36)
[2019-03-26] MEDS: LEVOFLOXACIN INJ 500 MG in PREMIX 1 EACH IV SCH (11:31)
[2019-03-26] MEDS: FAMOTIDINE 20 MG/2 ML VIAL IV SCH (17:48)
[2019-03-27] MEDS: INSULIN LISPRO 100 UNIT/ML SUBCUT SCH ×5 (00:18→23:55)
[2019-03-27] MEDS: ALBUTEROL/IPRATROPIUM 3 ML NEB RESP TX SCH ×4 (01:24→19:28)
[2019-03-27] MEDS: fentaNYL INJ 1,250 MCG in SODIUM CHLORIDE 0.9% 225 ML IV PRN ×4 (02:29→22:39)
[2019-03-27] MEDS: METOCLOPRAMIDE 10 MG/2 ML VIAL IV SCH ×4 (02:30→21:18)
[2019-03-27] MEDS: POLYVINYL ALCOHOL 1.4% OPH SOLN 15 ML BOTTLE BOTH EYES SCH ×4 (03:20→21:19)
[2019-03-27] MEDS: PROPOFOL 1,000 MG/100 ML BOTTLE IV SCH ×5 (03:20→23:54)
[2019-03-27 04:34] LABS: ABG Base Excess -7.4 MMOL/L (-2.5-2.5); ABG HCO3 18.3 MMOL/L (20-26); ABG Oxygen Saturation 96.8 % (95-100); ABG PCO2 48.2 MM HG (35-48); ABG PH 7.226 (7.35-7.45); ABG PO2 98.5 MM HG (80-95); ABG TCO2 19.1 MMOL/L (23-27); Allen Test Positive; Pt O2 Delivery Device Ventilator
[2019-03-27 04:52] LABS: Basophils % 0.6 % (0.0-0.8); Eosinophils # 0.2 10*3/uL (0.0-0.87); Eosinophils % 6.2 % (0.00-10.9); Hematocrit 25.9 VOL% (42.0-52.0); Hemoglobin 7.8 GM/DL (14.0-18.0); Immature Granulocytes % 1.8 %; Immature Granulocytes Absolute 0.06 #; Lymphocytes # 0.7 10*3/uL (1.4-4.0); Lymphocytes % 21.8 % (21.2-54.2); Mean Corpuscular HGB Conc 30.1 GM/DL (32-36); Mean Corpuscular Volume 112.1 FL (87-102); Mean Platelet Volume 10.4 FL (9.6-12.0); Monocytes % 6.5 % (1.7-12.7); NRBC # 0.02 10*3/uL; Neutrophils % 63.1 % (38.7-73.9); Platelet Count 210 T/CUMM (130-400); Red Blood Count 2.31 MC/CUMM (3.8-5.5); Red Cell Distribution Width 15.6 % (9.3-17.3); White Blood Count 3.4 T/CUMM (4-12)
[2019-03-27 05:07] LABS: Calcium 8.4 MG/DL (8.5-10.1); Osmolality,Calculated 333.1 MOS/KG (273-304)
[2019-03-27 05:12] LABS: Hypochromasia 1+; Microcytosis Slight; Ovalocytes Slight; Platelet Estimate Adequate
[2019-03-27 05:24] LABS: Prealbumin 9.4 MG/DL (20-40)
[2019-03-27] MEDS: FUROSEMIDE 40 MG/4 ML VIAL IV SCH (09:32)
[2019-03-27] MEDS: METOPROLOL TARTRATE 50 MG TABLET PO SCH ×2 (09:32→21:18)
[2019-03-27] MEDS: DILTIAZEM 60 MG TABLET PO SCH ×3 (09:32→21:17)
[2019-03-27] MEDS: MUPIROCIN 2% OINT 22 GM TUBE TOP SCH ×2 (09:37→21:19)
[2019-03-27] MEDS: DESMOPRESSIN 10 MCG NASAL SPRAY 5 ML BOTTLE ONE NARE SCH ×2 (09:37→21:19)
[2019-03-27] MEDS: FLUCONAZOLE INJ 200 MG in PREMIX 1 EACH IV SCH (09:41)
[2019-03-27] MEDS: INSULIN GLARGINE 100 UNIT/ML SUBCUT SCH ×2 (09:44→21:18)
[2019-03-27] MEDS: FAMOTIDINE 20 MG/2 ML VIAL IV SCH (18:30)
[2019-03-28] MEDS: ALBUTEROL/IPRATROPIUM 3 ML NEB RESP TX SCH ×4 (00:19→18:57)
[2019-03-28] MEDS: PROPOFOL 1,000 MG/100 ML BOTTLE IV SCH ×5 (01:02→23:52)
[2019-03-28] MEDS: METOCLOPRAMIDE 10 MG/2 ML VIAL IV SCH ×4 (03:30→21:46)
[2019-03-28] MEDS: POLYVINYL ALCOHOL 1.4% OPH SOLN 15 ML BOTTLE BOTH EYES SCH ×4 (03:30→21:46)
[2019-03-28 04:35] LABS: Basophils % 0.7 % (0.0-0.8); Eosinophils # 0.1 10*3/uL (0.0-0.87); Eosinophils % 4.4 % (0.00-10.9); Hematocrit 25.8 VOL% (42.0-52.0); Hemoglobin 7.5 GM/DL (14.0-18.0); Immature Granulocytes Absolute 0.06 #; Lymphocytes # 0.7 10*3/uL (1.4-4.0); Lymphocytes % 22.8 % (21.2-54.2); Mean Corpuscular HGB Conc 29.1 GM/DL (32-36); Mean Corpuscular Volume 112.2 FL (87-102); Mean Platelet Volume 10.3 FL (9.6-12.0); Monocytes % 7.5 % (1.7-12.7); NRBC # 0.02 10*3/uL; Neutrophils % 62.6 % (38.7-73.9); Platelet Count 224 T/CUMM (130-400); Red Cell Distribution Width 15.7 % (9.3-17.3); White Blood Count 2.9 T/CUMM (4-12)
[2019-03-28] MEDS: fentaNYL INJ 1,250 MCG in SODIUM CHLORIDE 0.9% 225 ML IV PRN ×3 (04:36→19:40)
[2019-03-28 04:51] LABS: Albumin 1.6 G/DL (3.4-5.0); Bilirubin,Total 1.5 MG/DL (0.2-1.0); Calcium 8.2 MG/DL (8.5-10.1); Total Protein 5.8 G/DL (6.4-8.3)
[2019-03-28 05:00] LABS: Band Neutrophils 4 % (0-10); Eosinophils 3 % (0-10); Metamyelocytes 2 %
[2019-03-28 05:01] LABS: Anisocytosis 1+; Lymphocytes 20 % (20-55); Macrocytosis 1+; Platelet Estimate Normal; Segmented Neutrophils 64 % (50-85); Total Cells Counted 100
[2019-03-28] MEDS: INSULIN LISPRO 100 UNIT/ML SUBCUT SCH ×3 (06:43→18:18)
[2019-03-28] MEDS: DESMOPRESSIN 10 MCG NASAL SPRAY 5 ML BOTTLE ONE NARE SCH (09:59)
[2019-03-28] MEDS: INSULIN GLARGINE 100 UNIT/ML SUBCUT SCH ×2 (10:15→21:47)
[2019-03-28] MEDS: FUROSEMIDE 40 MG/4 ML VIAL IV SCH (10:15)
[2019-03-28] MEDS: DILTIAZEM 60 MG TABLET PO SCH ×3 (10:15→21:45)
[2019-03-28] MEDS: MUPIROCIN 2% OINT 22 GM TUBE TOP SCH ×2 (10:15→21:46)
[2019-03-28] MEDS: METOPROLOL TARTRATE 50 MG TABLET PO SCH ×2 (10:16→21:45)
[2019-03-28] MEDS: FLUCONAZOLE INJ 200 MG in PREMIX 1 EACH IV SCH (10:17)
[2019-03-28] MEDS: LEVOFLOXACIN INJ 500 MG in PREMIX 1 EACH IV SCH (11:00)
[2019-03-28] MEDS: TAMSULOSIN 0.4 MG CAPSULE PO SCH (15:46)
[2019-03-28] MEDS: ATORVASTATIN 40 MG TABLET PO SCH (15:46)
[2019-03-28] MEDS: PANTOPRAZOLE 40 MG VIAL IV SCH ×2 (15:46→21:45)
[2019-03-28] MEDS: METOPROLOL TARTRATE 5 MG/5 ML VIAL IV PRN (16:09)
[2019-03-28] MEDS: DONEPEZIL 5 MG TABLET PO SCH (21:45)
[2019-03-29] MEDS: ALBUTEROL/IPRATROPIUM 3 ML NEB RESP TX SCH ×4 (01:15→19:10)
[2019-03-29] MEDS: INSULIN LISPRO 100 UNIT/ML SUBCUT SCH ×4 (01:17→18:20)
[2019-03-29] MEDS: METOCLOPRAMIDE 10 MG/2 ML VIAL IV SCH ×4 (01:53→20:08)
[2019-03-29 03:28] LABS: ABG Base Excess -6.6 MMOL/L (-2.5-2.5); ABG Oxygen Saturation 94.3 % (95-100); ABG PCO2 45.2 MM HG (35-48); ABG PH 7.263 (7.35-7.45); ABG PO2 84.6 MM HG (80-95); ABG TCO2 21.4 MMOL/L (23-27); Pt O2 Delivery Device Ventilator
[2019-03-29] MEDS: POLYVINYL ALCOHOL 1.4% OPH SOLN 15 ML BOTTLE BOTH EYES SCH ×4 (03:38→21:06)
[2019-03-29] MEDS: PROPOFOL 1,000 MG/100 ML BOTTLE IV SCH ×2 (04:11→22:33)
[2019-03-29 04:28] LABS: Basophils % 0.7 % (0.0-0.8); Eosinophils # 0.1 10*3/uL (0.0-0.87); Eosinophils % 3.2 % (0.00-10.9); Hematocrit 25.3 VOL% (42.0-52.0); Hemoglobin 7.4 GM/DL (14.0-18.0); Immature Granulocytes % 2.2 %; Immature Granulocytes Absolute 0.06 #; Lymphocytes # 0.7 10*3/uL (1.4-4.0); Lymphocytes % 23.7 % (21.2-54.2); Mean Corpuscular HGB Conc 29.2 GM/DL (32-36); Mean Corpuscular Volume 110.5 FL (87-102); Mean Platelet Volume 10.3 FL (9.6-12.0); Monocytes % 9.3 % (1.7-12.7); NRBC # 0.02 10*3/uL; Neutrophils % 60.9 % (38.7-73.9); Platelet Count 248 T/CUMM (130-400); Red Blood Count 2.29 MC/CUMM (3.8-5.5); Red Cell Distribution Width 15.8 % (9.3-17.3); White Blood Count 2.8 T/CUMM (4-12)
[2019-03-29] MEDS: fentaNYL INJ 1,250 MCG in SODIUM CHLORIDE 0.9% 225 ML IV PRN ×3 (04:39→23:00)
[2019-03-29 04:49] LABS: Albumin 1.7 G/DL (3.4-5.0); Bilirubin,Total 0.7 MG/DL (0.2-1.0); Calcium 8.5 MG/DL (8.5-10.1); Osmolality,Calculated 338.4 MOS/KG (273-304); Total Protein 6.1 G/DL (6.4-8.3)
[2019-03-29 05:11] LABS: Platelet Estimate Normal; Polychromasia Few
[2019-03-29] MEDS: DILTIAZEM 60 MG TABLET PO SCH ×3 (08:50→20:09)
[2019-03-29] MEDS: TAMSULOSIN 0.4 MG CAPSULE PO SCH (08:50)
[2019-03-29] MEDS: PANTOPRAZOLE 40 MG VIAL IV SCH ×2 (08:50→20:09)
[2019-03-29] MEDS: ATORVASTATIN 40 MG TABLET PO SCH (08:50)
[2019-03-29] MEDS: INSULIN GLARGINE 100 UNIT/ML SUBCUT SCH ×2 (08:50→20:09)
[2019-03-29] MEDS: METOPROLOL TARTRATE 50 MG TABLET PO SCH ×2 (08:50→20:09)
[2019-03-29] MEDS: MUPIROCIN 2% OINT 22 GM TUBE TOP SCH ×2 (09:57→20:09)
[2019-03-29] MEDS ORDERED: SODIUM CHLORIDE 0.9% 1,000 ML IV PRN (11:43)
[2019-03-29] MEDS: DEXTROSE 5% 1,000 ML IV SCH (14:30)
[2019-03-29] MEDS: DONEPEZIL 5 MG TABLET PO SCH (20:08)
[2019-03-30] MEDS: INSULIN LISPRO 100 UNIT/ML SUBCUT SCH ×4 (00:33→18:43)
[2019-03-30] MEDS: ALBUTEROL/IPRATROPIUM 3 ML NEB RESP TX SCH ×4 (01:15→20:23)
[2019-03-30] MEDS: DEXTROSE 5% 1,000 ML IV SCH ×2 (03:30→16:37)
[2019-03-30] MEDS: METOCLOPRAMIDE 10 MG/2 ML VIAL IV SCH ×4 (03:41→21:15)
[2019-03-30] MEDS: POLYVINYL ALCOHOL 1.4% OPH SOLN 15 ML BOTTLE BOTH EYES SCH ×4 (03:43→21:23)
[2019-03-30 03:44] LABS: ABG Base Excess -5.7 MMOL/L (-2.5-2.5); ABG HCO3 21.1 MMOL/L (20-26); ABG Oxygen Saturation 96.8 % (95-100); ABG PCO2 46.8 MM HG (35-48); ABG PH 7.272 (7.35-7.45); ABG PO2 104.8 MM HG (80-95); ABG TCO2 22.5 MMOL/L (23-27); Allen Test Positive; Pt O2 Delivery Device Ventilator
[2019-03-30 04:27] LABS: Basophils % 0.6 % (0.0-0.8); Eosinophils # 0.1 10*3/uL (0.0-0.87); Eosinophils % 3.1 % (0.00-10.9); Hemoglobin 8.2 GM/DL (14.0-18.0); Immature Granulocytes % 3.1 %; Lymphocytes # 0.7 10*3/uL (1.4-4.0); Lymphocytes % 21.1 % (21.2-54.2); Mean Corpuscular HGB Conc 30.4 GM/DL (32-36); Mean Platelet Volume 9.8 FL (9.6-12.0); Monocytes % 9.6 % (1.7-12.7); Neutrophils % 62.5 % (38.7-73.9); Platelet Count 245 T/CUMM (130-400); Red Cell Distribution Width 17.6 % (9.3-17.3); White Blood Count 3.2 T/CUMM (4-12)
[2019-03-30 04:49] LABS: Albumin 1.7 G/DL (3.4-5.0); Calcium 8.2 MG/DL (8.5-10.1); Osmolality,Calculated 329.6 MOS/KG (273-304); Total Protein 6.2 G/DL (6.4-8.3)
[2019-03-30 04:54] LABS: Prealbumin 9.2 MG/DL (20-40)
[2019-03-30] MEDS: fentaNYL INJ 1,250 MCG in SODIUM CHLORIDE 0.9% 225 ML IV PRN (07:43)
[2019-03-30] MEDS: DILTIAZEM 60 MG TABLET PO SCH ×3 (09:55→21:22)
[2019-03-30] MEDS: METOPROLOL TARTRATE 50 MG TABLET PO SCH ×3 (09:55→21:23)
[2019-03-30] MEDS: ATORVASTATIN 40 MG TABLET PO SCH (09:55)
[2019-03-30] MEDS: PANTOPRAZOLE 40 MG VIAL IV SCH ×2 (09:56→21:23)
[2019-03-30] MEDS: TAMSULOSIN 0.4 MG CAPSULE PO SCH (09:56)
[2019-03-30] MEDS: INSULIN GLARGINE 100 UNIT/ML SUBCUT SCH ×2 (09:56→21:23)
[2019-03-30] MEDS: MUPIROCIN 2% OINT 22 GM TUBE TOP SCH ×2 (16:02→21:22)
[2019-03-30] MEDS: DONEPEZIL 5 MG TABLET PO SCH (21:22)
[2019-03-31] MEDS: INSULIN LISPRO 100 UNIT/ML SUBCUT SCH ×5 (00:12→23:59)
[2019-03-31] MEDS: ALBUTEROL/IPRATROPIUM 3 ML NEB RESP TX SCH ×4 (01:38→20:04)
[2019-03-31] MEDS: PROPOFOL 1,000 MG/100 ML BOTTLE IV SCH (02:20)
[2019-03-31] MEDS: METOCLOPRAMIDE 10 MG/2 ML VIAL IV SCH (02:21)
[2019-03-31] MEDS: MORPHINE 4 MG/1 ML VIAL IV PRN ×2 (02:21→09:35)
[2019-03-31 03:17] LABS: ABG HCO3 22.7 MMOL/L (20-26); ABG Oxygen Saturation 99.1 % (95-100); ABG PCO2 40.2 MM HG (35-48); ABG PH 7.368 (7.35-7.45); ABG TCO2 20.7 MMOL/L (23-27); Allen Test Positive; Pt O2 Delivery Device Ventilator
[2019-03-31] MEDS: POLYVINYL ALCOHOL 1.4% OPH SOLN 15 ML BOTTLE BOTH EYES SCH ×5 (04:30→21:21)
[2019-03-31] MEDS: METOPROLOL TARTRATE 5 MG/5 ML VIAL IV PRN (05:23)
[2019-03-31] MEDS: DEXTROSE 5% 1,000 ML IV SCH ×3 (05:32→19:47)
[2019-03-31 05:45] LABS: Basophils % 0.7 % (0.0-0.8); Eosinophils # 0.1 10*3/uL (0.0-0.87); Eosinophils % 1.6 % (0.00-10.9); Hematocrit 27.7 VOL% (42.0-52.0); Hemoglobin 8.3 GM/DL (14.0-18.0); Immature Granulocytes % 3.9 %; Immature Granulocytes Absolute 0.12 #; Lymphocytes # 0.8 10*3/uL (1.4-4.0); Lymphocytes % 24.7 % (21.2-54.2); Mean Corpuscular Volume 106.9 FL (87-102); Monocytes % 9.2 % (1.7-12.7); Neutrophils % 59.9 % (38.7-73.9); Platelet Count 225 T/CUMM (130-400); Red Blood Count 2.59 MC/CUMM (3.8-5.5); Red Cell Distribution Width 16.9 % (9.3-17.3)
[2019-03-31 06:18] LABS: Calcium 8.2 MG/DL (8.5-10.1); Osmolality,Calculated 325.3 MOS/KG (273-304)
[2019-03-31] MEDS: hydrALAZINE 20 MG/1 ML VIAL IV PRN ×2 (06:54→08:12)
[2019-03-31] MEDS ORDERED: METOPROLOL TARTRATE 5 MG/5 ML VIAL IV ONE (08:00)
[2019-03-31] MEDS ORDERED: MAGNESIUM SULF RIDER 4 GM in PREMIX 1 EACH IV PRN (08:04)
[2019-03-31] MEDS: DILTIAZEM 90 MG TABLET PO SCH ×3 (09:27→21:13)
[2019-03-31] MEDS: MUPIROCIN 2% OINT 22 GM TUBE TOP SCH ×2 (09:27→21:21)
[2019-03-31] MEDS: METOPROLOL TARTRATE 50 MG TABLET PO SCH ×2 (09:27→21:14)
[2019-03-31] MEDS: INSULIN GLARGINE 100 UNIT/ML SUBCUT SCH ×2 (09:28→21:28)
[2019-03-31] MEDS: POTASSIUM CHLORIDE 20 MEQ/15 ML UDCUP PER TUBE PRN ×4 (09:28→23:59)
[2019-03-31] MEDS: PANTOPRAZOLE 40 MG VIAL IV SCH ×2 (09:28→21:19)
[2019-03-31] MEDS: ATORVASTATIN 40 MG TABLET PO SCH (09:28)
[2019-03-31] MEDS: TAMSULOSIN 0.4 MG CAPSULE PO SCH (09:28)
[2019-03-31] MEDS: MINERAL OIL/PETROLATUM OPH OINT 3.5 GM TUBE BOTH EYES SCH ×3 (09:35→21:22)
[2019-03-31] MEDS: MAGNESIUM SULF RIDER 2 GM in PREMIX 1 EACH IV PRN (10:00)
[2019-03-31] MEDS: DONEPEZIL 5 MG TABLET PO SCH (21:13)
[2019-04-01] MEDS: ALBUTEROL/IPRATROPIUM 3 ML NEB RESP TX SCH ×4 (00:19→19:43)
[2019-04-01 03:56] LABS: Basophils % 0.4 % (0.0-0.8); Eosinophils # 0.1 10*3/uL (0.0-0.87); Eosinophils % 2.4 % (0.00-10.9); Hematocrit 26.3 VOL% (42.0-52.0); Hemoglobin 8.1 GM/DL (14.0-18.0); Immature Granulocytes % 3.9 %; Immature Granulocytes Absolute 0.18 #; Lymphocytes # 0.8 10*3/uL (1.4-4.0); Lymphocytes % 18.2 % (21.2-54.2); Mean Corpuscular HGB Conc 30.8 GM/DL (32-36); Mean Corpuscular Volume 104.4 FL (87-102); Mean Platelet Volume 10.1 FL (9.6-12.0); Monocytes % 7.7 % (1.7-12.7); Neutrophils % 67.4 % (38.7-73.9); Platelet Count 226 T/CUMM (130-400); Red Blood Count 2.52 MC/CUMM (3.8-5.5); Red Cell Distribution Width 16.6 % (9.3-17.3); White Blood Count 4.6 T/CUMM (4-12)
[2019-04-01 04:08] LABS: Calcium 7.8 MG/DL (8.5-10.1)
[2019-04-01 04:58] LABS: ABG Base Excess -2.6 MMOL/L (-2.5-2.5); ABG HCO3 20.9 MMOL/L (20-26); ABG Oxygen Saturation 97.9 % (95-100); ABG PCO2 30.8 MM HG (35-48); ABG PH 7.449 (7.35-7.45); ABG PO2 112.4 MM HG (80-95); ABG TCO2 21.8 MMOL/L (23-27); Allen Test Positive; Pt O2 Delivery Device Ventilator
[2019-04-01] MEDS: DEXTROSE 5% 1,000 ML IV SCH (05:00)
[2019-04-01] MEDS: POLYVINYL ALCOHOL 1.4% OPH SOLN 15 ML BOTTLE BOTH EYES SCH ×4 (05:00→21:13)
[2019-04-01] MEDS: POTASSIUM CHLORIDE 20 MEQ/15 ML UDCUP PER TUBE PRN (06:30)
[2019-04-01] MEDS: INSULIN LISPRO 100 UNIT/ML SUBCUT SCH ×3 (06:31→18:09)
[2019-04-01] MEDS: MAGNESIUM SULF RIDER 2 GM in PREMIX 1 EACH IV PRN (06:31)
[2019-04-01] MEDS: MORPHINE 4 MG/1 ML VIAL IV PRN (06:51)
[2019-04-01] MEDS ORDERED: MORPHINE 4 MG/1 ML VIAL IV PRN (09:17)
[2019-04-01] MEDS: MUPIROCIN 2% OINT 22 GM TUBE TOP SCH ×2 (09:25→21:13)
[2019-04-01] MEDS: DILTIAZEM 90 MG TABLET PO SCH ×3 (09:26→21:05)
[2019-04-01] MEDS: METOPROLOL TARTRATE 50 MG TABLET PO SCH ×2 (09:26→21:05)
[2019-04-01] MEDS: MINERAL OIL/PETROLATUM OPH OINT 3.5 GM TUBE BOTH EYES SCH ×3 (09:26→21:12)
[2019-04-01] MEDS: INSULIN GLARGINE 100 UNIT/ML SUBCUT SCH ×2 (09:26→21:06)
[2019-04-01] MEDS: TAMSULOSIN 0.4 MG CAPSULE PO SCH (09:27)
[2019-04-01] MEDS: PANTOPRAZOLE 40 MG VIAL IV SCH ×2 (09:27→21:01)
[2019-04-01] MEDS: ATORVASTATIN 40 MG TABLET PO SCH (09:27)
[2019-04-01] MEDS ORDERED: MORPHINE 4 MG/1 ML VIAL IV SCH (10:00)
[2019-04-01] MEDS: HYDROmorphone 2 MG/1 ML VIAL IV PRN ×5 (10:40→23:53)
[2019-04-01] MEDS: DONEPEZIL 5 MG TABLET PO SCH (21:06)
[2019-04-02] MEDS: ALBUTEROL/IPRATROPIUM 3 ML NEB RESP TX SCH ×4 (00:24→19:15)
[2019-04-02] MEDS: INSULIN LISPRO 100 UNIT/ML SUBCUT SCH ×4 (01:17→18:11)
[2019-04-02] MEDS: HYDROmorphone 2 MG/1 ML VIAL IV PRN ×2 (02:06→05:52)
[2019-04-02 04:17] LABS: ABG Base Excess -0.8 MMOL/L (-2.5-2.5); ABG HCO3 23.7 MMOL/L (20-26); ABG Oxygen Saturation 93.9 % (95-100); ABG PCO2 34.6 MM HG (35-48); ABG PH 7.431 (7.35-7.45); ABG PO2 68.2 MM HG (80-95); ABG TCO2 20.8 MMOL/L (23-27); Allen Test Positive; Pt O2 Delivery Device Ventilator
[2019-04-02] MEDS: POLYVINYL ALCOHOL 1.4% OPH SOLN 15 ML BOTTLE BOTH EYES SCH ×4 (04:40→21:36)
[2019-04-02 04:59] LABS: Basophils % 0.4 % (0.0-0.8); Eosinophils # 0.1 10*3/uL (0.0-0.87); Eosinophils % 2.1 % (0.00-10.9); Hemoglobin 8.2 GM/DL (14.0-18.0); Immature Granulocytes % 1.7 %; Immature Granulocytes Absolute 0.09 #; Lymphocytes # 1.1 10*3/uL (1.4-4.0); Lymphocytes % 20.8 % (21.2-54.2); Mean Corpuscular HGB Conc 30.4 GM/DL (32-36); Mean Corpuscular Volume 105.1 FL (87-102); Mean Platelet Volume 10.3 FL (9.6-12.0); Monocytes % 6.2 % (1.7-12.7); Neutrophils % 68.8 % (38.7-73.9); Platelet Count 201 T/CUMM (130-400); Red Blood Count 2.57 MC/CUMM (3.8-5.5); Red Cell Distribution Width 16.1 % (9.3-17.3); White Blood Count 5.3 T/CUMM (4-12)
[2019-04-02 05:29] LABS: Osmolality,Calculated 311.9 MOS/KG (273-304)
[2019-04-02 05:47] LABS: Free T4 (Free Thyroxine) 0.93 NG/DL (0.76-1.46); Thyroid Stimulating Hormone 2.9 uIU/ml (0.358-3.74)
[2019-04-02] MEDS: MAGNESIUM SULF RIDER 2 GM in PREMIX 1 EACH IV PRN (05:57)
[2019-04-02] MEDS: PANTOPRAZOLE 40 MG VIAL IV SCH ×2 (08:30→21:34)
[2019-04-02] MEDS: ATORVASTATIN 40 MG TABLET PO SCH (08:32)
[2019-04-02] MEDS: DILTIAZEM 90 MG TABLET PO SCH (08:32)
[2019-04-02] MEDS: INSULIN GLARGINE 100 UNIT/ML SUBCUT SCH ×2 (08:32→21:35)
[2019-04-02] MEDS: MUPIROCIN 2% OINT 22 GM TUBE TOP SCH ×2 (08:33→21:35)
[2019-04-02] MEDS: TAMSULOSIN 0.4 MG CAPSULE PO SCH (08:33)
[2019-04-02] MEDS: METOPROLOL TARTRATE 50 MG TABLET PO SCH ×2 (08:33→21:36)
[2019-04-02] MEDS: MINERAL OIL/PETROLATUM OPH OINT 3.5 GM TUBE BOTH EYES SCH ×3 (08:34→21:36)
[2019-04-02] MEDS: MICAFUNGIN 100 MG in SODIUM CHLORIDE 0.9% 100 ML IV SCH (09:37)
[2019-04-02] MEDS: DEXMEDETOMIDINE 200 MCG in SODIUM CHLORIDE 0.9% 48 ML IV PRN ×2 (09:50→13:50)
[2019-04-02] MEDS: DILTIAZEM 60 MG TABLET PO SCH ×2 (15:16→21:35)
[2019-04-02] MEDS: DEXMEDETOMIDINE 400 MCG in SODIUM CHLORIDE 0.9% 96 ML IV PRN ×2 (16:03→20:47)
[2019-04-02] MEDS: DONEPEZIL 5 MG TABLET PO SCH (21:35)
[2019-04-03] MEDS: INSULIN LISPRO 100 UNIT/ML SUBCUT SCH ×4 (00:20→18:28)
[2019-04-03] MEDS: DEXMEDETOMIDINE 400 MCG in SODIUM CHLORIDE 0.9% 96 ML IV PRN ×6 (00:30→20:45)
[2019-04-03] MEDS: ALBUTEROL/IPRATROPIUM 3 ML NEB RESP TX SCH ×4 (01:15→19:03)
[2019-04-03 03:46] LABS: ABG Base Excess 0.3 MMOL/L (-2.5-2.5); ABG HCO3 24.7 MMOL/L (20-26); ABG Oxygen Saturation 96.9 % (95-100); ABG PCO2 32.7 MM HG (35-48); ABG PH 7.467 (7.35-7.45); ABG PO2 81.8 MM HG (80-95); ABG TCO2 21.7 MMOL/L (23-27); Allen Test Positive; Pt O2 Delivery Device Ventilator
[2019-04-03 04:14] LABS: Basophils % 0.4 % (0.0-0.8); Eosinophils # 0.1 10*3/uL (0.0-0.87); Eosinophils % 1.7 % (0.00-10.9); Hematocrit 25.9 VOL% (42.0-52.0); Hemoglobin 8.1 GM/DL (14.0-18.0); Immature Granulocytes Absolute 0.05 #; Lymphocytes # 1.1 10*3/uL (1.4-4.0); Lymphocytes % 20.6 % (21.2-54.2); Mean Corpuscular HGB Conc 31.3 GM/DL (32-36); Mean Platelet Volume 10.2 FL (9.6-12.0); Monocytes % 5.6 % (1.7-12.7); Neutrophils % 70.7 % (38.7-73.9); Platelet Count 174 T/CUMM (130-400); Red Blood Count 2.49 MC/CUMM (3.8-5.5); Red Cell Distribution Width 15.7 % (9.3-17.3); White Blood Count 5.2 T/CUMM (4-12)
[2019-04-03 04:28] LABS: Calcium 7.7 MG/DL (8.5-10.1); Osmolality,Calculated 307.1 MOS/KG (273-304)
[2019-04-03 04:43] LABS: Prealbumin 9.7 MG/DL (20-40)
[2019-04-03] MEDS: POLYVINYL ALCOHOL 1.4% OPH SOLN 15 ML BOTTLE BOTH EYES SCH ×4 (04:50→23:18)
[2019-04-03] MEDS ORDERED: FUROSEMIDE 40 MG/4 ML VIAL IV ONE (07:05)
[2019-04-03] MEDS: MICAFUNGIN 100 MG in SODIUM CHLORIDE 0.9% 100 ML IV SCH (08:52)
[2019-04-03] MEDS: TAMSULOSIN 0.4 MG CAPSULE PO SCH (09:30)
[2019-04-03] MEDS: METOPROLOL TARTRATE 50 MG TABLET PO SCH ×2 (09:30→20:48)
[2019-04-03] MEDS: hydrALAZINE 25 MG TABLET PO SCH ×2 (09:31→20:47)
[2019-04-03] MEDS: DILTIAZEM 60 MG TABLET PO SCH ×3 (09:31→20:47)
[2019-04-03] MEDS: INSULIN GLARGINE 100 UNIT/ML SUBCUT SCH ×2 (09:31→20:48)
[2019-04-03] MEDS: MINERAL OIL/PETROLATUM OPH OINT 3.5 GM TUBE BOTH EYES SCH ×3 (09:32→20:48)
[2019-04-03] MEDS: PANTOPRAZOLE 40 MG VIAL IV SCH ×2 (09:32→20:48)
[2019-04-03] MEDS: MUPIROCIN 2% OINT 22 GM TUBE TOP SCH ×2 (10:05→20:47)
[2019-04-03] MEDS: DONEPEZIL 5 MG TABLET PO SCH (20:47)
[2019-04-04] MEDS: INSULIN LISPRO 100 UNIT/ML SUBCUT SCH ×5 (00:14→23:21)
[2019-04-04] MEDS: DEXMEDETOMIDINE 400 MCG in SODIUM CHLORIDE 0.9% 96 ML IV PRN ×6 (00:30→23:03)
[2019-04-04] MEDS: ALBUTEROL/IPRATROPIUM 3 ML NEB RESP TX SCH ×4 (00:32→19:53)
[2019-04-04 04:01] LABS: ABG Base Excess 1.3 MMOL/L (-2.5-2.5); ABG Oxygen Saturation 97.2 % (95-100); ABG PCO2 30.7 MM HG (35-48); ABG PH 7.511 (7.35-7.45); ABG PO2 98.8 MM HG (80-95); ABG TCO2 24.9 MMOL/L (23-27); Allen Test Positive; Pt O2 Delivery Device Ventilator
[2019-04-04] MEDS: POLYVINYL ALCOHOL 1.4% OPH SOLN 15 ML BOTTLE BOTH EYES SCH ×4 (04:21→23:21)
[2019-04-04 04:56] LABS: Basophils % 0.5 % (0.0-0.8); Eosinophils # 0.1 10*3/uL (0.0-0.87); Eosinophils % 1.5 % (0.00-10.9); Hematocrit 26.9 VOL% (42.0-52.0); Hemoglobin 8.4 GM/DL (14.0-18.0); Immature Granulocytes % 0.8 %; Immature Granulocytes Absolute 0.05 #; Lymphocytes # 1.2 10*3/uL (1.4-4.0); Mean Corpuscular HGB Conc 31.2 GM/DL (32-36); Mean Corpuscular Volume 101.9 FL (87-102); Mean Platelet Volume 10.6 FL (9.6-12.0); Monocytes % 6.4 % (1.7-12.7); Neutrophils % 70.8 % (38.7-73.9); Platelet Count 188 T/CUMM (130-400); Red Blood Count 2.64 MC/CUMM (3.8-5.5); Red Cell Distribution Width 15.6 % (9.3-17.3)
[2019-04-04 05:31] LABS: Calcium 7.8 MG/DL (8.5-10.1); Osmolality,Calculated 306.4 MOS/KG (273-304)
[2019-04-04] MEDS: MAGNESIUM SULF RIDER 2 GM in PREMIX 1 EACH IV PRN (06:11)
[2019-04-04] MEDS ORDERED: MAGNESIUM SULF RIDER 2 GM in PREMIX 1 EACH IV ONE (08:21)
[2019-04-04] MEDS: PANTOPRAZOLE 40 MG VIAL IV SCH ×2 (10:05→23:21)
[2019-04-04] MEDS: METOPROLOL TARTRATE 50 MG TABLET PO SCH ×2 (10:46→23:21)
[2019-04-04] MEDS: DILTIAZEM 60 MG TABLET PO SCH ×3 (10:47→23:20)
[2019-04-04] MEDS: hydrALAZINE 25 MG TABLET PO SCH ×2 (10:47→23:20)
[2019-04-04] MEDS: TAMSULOSIN 0.4 MG CAPSULE PO SCH (10:47)
[2019-04-04] MEDS: INSULIN GLARGINE 100 UNIT/ML SUBCUT SCH ×2 (10:47→23:21)
[2019-04-04] MEDS: MICAFUNGIN 100 MG in SODIUM CHLORIDE 0.9% 100 ML IV SCH (10:48)
[2019-04-04] MEDS: MINERAL OIL/PETROLATUM OPH OINT 3.5 GM TUBE BOTH EYES SCH ×3 (10:48→23:21)
[2019-04-04] MEDS: MUPIROCIN 2% OINT 22 GM TUBE TOP SCH ×2 (10:48→23:20)
[2019-04-04] MEDS: DONEPEZIL 5 MG TABLET PO SCH (23:20)
[2019-04-05] MEDS: ALBUTEROL/IPRATROPIUM 3 ML NEB RESP TX SCH ×4 (01:38→19:42)
[2019-04-05 03:50] LABS: ABG Base Excess 0.8 MMOL/L (-2.5-2.5); ABG HCO3 25.2 MMOL/L (20-26); ABG Oxygen Saturation 96.8 % (95-100); ABG PCO2 31.8 MM HG (35-48); ABG PH 7.484 (7.35-7.45); ABG PO2 84.1 MM HG (80-95); Allen Test Positive; Pt O2 Delivery Device Ventilator
[2019-04-05] MEDS: DEXMEDETOMIDINE 400 MCG in SODIUM CHLORIDE 0.9% 96 ML IV PRN ×4 (04:15→23:15)
[2019-04-05] MEDS: POLYVINYL ALCOHOL 1.4% OPH SOLN 15 ML BOTTLE BOTH EYES SCH ×4 (04:45→22:02)
[2019-04-05 05:06] LABS: Basophils % 0.5 % (0.0-0.8); Eosinophils # 0.1 10*3/uL (0.0-0.87); Eosinophils % 0.8 % (0.00-10.9); Hematocrit 26.1 VOL% (42.0-52.0); Immature Granulocytes % 0.9 %; Immature Granulocytes Absolute 0.06 #; Lymphocytes # 1.1 10*3/uL (1.4-4.0); Lymphocytes % 16.3 % (21.2-54.2); Mean Corpuscular HGB Conc 30.7 GM/DL (32-36); Mean Corpuscular Volume 104.4 FL (87-102); Monocytes % 7.1 % (1.7-12.7); Neutrophils % 74.4 % (38.7-73.9); Platelet Count 164 T/CUMM (130-400); Red Cell Distribution Width 15.3 % (9.3-17.3); White Blood Count 6.4 T/CUMM (4-12)
[2019-04-05 05:44] LABS: Calcium 7.8 MG/DL (8.5-10.1); Osmolality,Calculated 307.6 MOS/KG (273-304)
[2019-04-05] MEDS: INSULIN LISPRO 100 UNIT/ML SUBCUT SCH ×3 (06:00→17:45)
[2019-04-05] MEDS: PANTOPRAZOLE 40 MG VIAL IV SCH ×2 (08:00→22:01)
[2019-04-05] MEDS: hydrALAZINE 25 MG TABLET PO SCH ×2 (08:04→22:01)
[2019-04-05] MEDS: DILTIAZEM 60 MG TABLET PO SCH ×3 (08:04→22:01)
[2019-04-05] MEDS: METOPROLOL TARTRATE 50 MG TABLET PO SCH ×2 (08:04→22:01)
[2019-04-05] MEDS: TAMSULOSIN 0.4 MG CAPSULE PO SCH (08:04)
[2019-04-05] MEDS: MUPIROCIN 2% OINT 22 GM TUBE TOP SCH ×2 (08:04→22:01)
[2019-04-05] MEDS: INSULIN GLARGINE 100 UNIT/ML SUBCUT SCH ×3 (08:04→21:28)
[2019-04-05] MEDS: METOCLOPRAMIDE 10 MG/2 ML VIAL IV SCH ×2 (08:52→15:54)
[2019-04-05] MEDS: MICAFUNGIN 100 MG in SODIUM CHLORIDE 0.9% 100 ML IV SCH (08:52)
[2019-04-05] MEDS: MINERAL OIL/PETROLATUM OPH OINT 3.5 GM TUBE BOTH EYES SCH ×3 (08:58→22:01)
[2019-04-05] MEDS: DEXTROSE 5% NACL 0.45% 1,000 ML IV SCH (15:53)
[2019-04-05] MEDS: DONEPEZIL 5 MG TABLET PO SCH (22:01)
[2019-04-06] MEDS: INSULIN LISPRO 100 UNIT/ML SUBCUT SCH ×4 (00:15→17:50)
[2019-04-06] MEDS: METOCLOPRAMIDE 10 MG/2 ML VIAL IV SCH ×3 (00:30→16:15)
[2019-04-06] MEDS: ALBUTEROL/IPRATROPIUM 3 ML NEB RESP TX SCH ×4 (00:52→19:06)
[2019-04-06] MEDS: DEXMEDETOMIDINE 400 MCG in SODIUM CHLORIDE 0.9% 96 ML IV PRN ×5 (03:05→20:01)
[2019-04-06 04:09] LABS: ABG Base Excess -0.1 MMOL/L (-2.5-2.5); ABG HCO3 24.3 MMOL/L (20-26); ABG Oxygen Saturation 99.4 % (95-100); ABG PCO2 33.4 MM HG (35-48); ABG PH 7.454 (7.35-7.45); ABG TCO2 21.7 MMOL/L (23-27); Allen Test Positive; Pt O2 Delivery Device Ventilator
[2019-04-06] MEDS: POLYVINYL ALCOHOL 1.4% OPH SOLN 15 ML BOTTLE BOTH EYES SCH ×4 (04:22→21:24)
[2019-04-06 04:50] LABS: Basophils % 0.4 % (0.0-0.8); Eosinophils # 0.1 10*3/uL (0.0-0.87); Eosinophils % 1.4 % (0.00-10.9); Hematocrit 25.5 VOL% (42.0-52.0); Hemoglobin 7.9 GM/DL (14.0-18.0); Immature Granulocytes % 0.4 %; Immature Granulocytes Absolute 0.02 #; Lymphocytes # 1.1 10*3/uL (1.4-4.0); Lymphocytes % 22.1 % (21.2-54.2); Mean Corpuscular Volume 103.2 FL (87-102); Mean Platelet Volume 11.2 FL (9.6-12.0); Monocytes % 6.2 % (1.7-12.7); Neutrophils % 69.5 % (38.7-73.9); Platelet Count 158 T/CUMM (130-400); Red Blood Count 2.47 MC/CUMM (3.8-5.5); Red Cell Distribution Width 15.2 % (9.3-17.3); White Blood Count 4.9 T/CUMM (4-12)
[2019-04-06 05:18] LABS: Calcium 7.9 MG/DL (8.5-10.1); Osmolality,Calculated 306.6 MOS/KG (273-304)
[2019-04-06] MEDS: DILTIAZEM 60 MG TABLET PO SCH ×4 (08:09→21:10)
[2019-04-06] MEDS: METOPROLOL TARTRATE 50 MG TABLET PO SCH ×2 (08:09→21:11)
[2019-04-06] MEDS: hydrALAZINE 25 MG TABLET PO SCH ×2 (08:09→21:11)
[2019-04-06] MEDS: TAMSULOSIN 0.4 MG CAPSULE PO SCH (08:09)
[2019-04-06] MEDS: INSULIN GLARGINE 100 UNIT/ML SUBCUT SCH ×2 (08:10→21:13)
[2019-04-06] MEDS: PANTOPRAZOLE 40 MG VIAL IV SCH ×2 (08:15→21:14)
[2019-04-06] MEDS: MICAFUNGIN 100 MG in SODIUM CHLORIDE 0.9% 100 ML IV SCH (08:15)
[2019-04-06] MEDS: MUPIROCIN 2% OINT 22 GM TUBE TOP SCH ×2 (08:15→21:17)
[2019-04-06] MEDS: MINERAL OIL/PETROLATUM OPH OINT 3.5 GM TUBE BOTH EYES SCH ×3 (08:15→21:17)
[2019-04-06] MEDS ORDERED: oxyCODONE IR 5 MG TABLET PO PRN (11:42)
[2019-04-06] MEDS ORDERED: ACETAMINOPHEN 325 MG/10.15 ML UDCUP PER TUBE PRN (11:43)
[2019-04-06] MEDS: DEXTROSE 5% NACL 0.45% 1,000 ML IV SCH (12:13)
[2019-04-06] MEDS: DONEPEZIL 5 MG TABLET PO SCH (21:11)
[2019-04-07] MEDS: DEXMEDETOMIDINE 400 MCG in SODIUM CHLORIDE 0.9% 96 ML IV PRN ×4 (00:12→13:36)
[2019-04-07] MEDS: INSULIN LISPRO 100 UNIT/ML SUBCUT SCH ×3 (00:16→11:39)
[2019-04-07] MEDS: METOCLOPRAMIDE 10 MG/2 ML VIAL IV SCH ×2 (00:17→08:34)
[2019-04-07] MEDS: ALBUTEROL/IPRATROPIUM 3 ML NEB RESP TX SCH ×3 (00:35→13:42)
[2019-04-07] MEDS: POLYVINYL ALCOHOL 1.4% OPH SOLN 15 ML BOTTLE BOTH EYES SCH ×2 (03:47→10:50)
[2019-04-07 04:24] LABS: ABG Base Excess -0.6 MMOL/L (-2.5-2.5); ABG HCO3 23.9 MMOL/L (20-26); ABG Oxygen Saturation 95.9 % (95-100); ABG PCO2 34.2 MM HG (35-48); ABG PH 7.439 (7.35-7.45); ABG PO2 78.9 MM HG (80-95); ABG TCO2 21.6 MMOL/L (23-27); Allen Test Positive; Pt O2 Delivery Device Ventilator
[2019-04-07 05:44] LABS: Basophils % 0.6 % (0.0-0.8); Eosinophils # 0.1 10*3/uL (0.0-0.87); Eosinophils % 1.9 % (0.00-10.9); Hematocrit 27.1 VOL% (42.0-52.0); Hemoglobin 8.2 GM/DL (14.0-18.0); Immature Granulocytes % 0.4 %; Immature Granulocytes Absolute 0.02 #; Lymphocytes # 1.1 10*3/uL (1.4-4.0); Lymphocytes % 22.6 % (21.2-54.2); Mean Corpuscular HGB Conc 30.3 GM/DL (32-36); Mean Corpuscular Volume 104.6 FL (87-102); Mean Platelet Volume 11.4 FL (9.6-12.0); Monocytes % 8.7 % (1.7-12.7); Neutrophils % 65.8 % (38.7-73.9); Platelet Count 162 T/CUMM (130-400); Red Blood Count 2.59 MC/CUMM (3.8-5.5); White Blood Count 4.7 T/CUMM (4-12)
[2019-04-07 05:54] LABS: Calcium 7.9 MG/DL (8.5-10.1); Osmolality,Calculated 303.6 MOS/KG (273-304)
[2019-04-07] MEDS: POTASSIUM CHLORIDE 20 MEQ/15 ML UDCUP PER TUBE PRN (06:07)
[2019-04-07] MEDS: DEXTROSE 5% NACL 0.45% 1,000 ML IV SCH (08:18)
[2019-04-07] MEDS: MICAFUNGIN 100 MG in SODIUM CHLORIDE 0.9% 100 ML IV SCH (08:20)
[2019-04-07] MEDS ORDERED: ONDANSETRON 4 MG/2 ML VIAL IV PRN (09:41)
[2019-04-07] MEDS ORDERED: ONDANSETRON 4 MG/2 ML VIAL ONE (09:42)
[2019-04-07] MEDS: DILTIAZEM 60 MG TABLET PO SCH (10:44)
[2019-04-07] MEDS: hydrALAZINE 25 MG TABLET PO SCH (10:45)
[2019-04-07] MEDS: INSULIN GLARGINE 100 UNIT/ML SUBCUT SCH (10:45)
[2019-04-07] MEDS: METOPROLOL TARTRATE 50 MG TABLET PO SCH (10:45)
[2019-04-07] MEDS: MUPIROCIN 2% OINT 22 GM TUBE TOP SCH (10:45)
[2019-04-07] MEDS: TAMSULOSIN 0.4 MG CAPSULE PO SCH (10:45)
[2019-04-07] MEDS: PANTOPRAZOLE 40 MG VIAL IV SCH (10:46)
[2019-04-07] MEDS: MINERAL OIL/PETROLATUM OPH OINT 3.5 GM TUBE BOTH EYES SCH (10:51)
[2019-04-07 16:27] VITALS: BP 122/74
== END 2019-04-07 16:37 | DRG 4 ==
LOC: EDUNIT# → EDBD → N.ED 16:09 → N.EDINP 17:53 → SUATTDRO 17:53 → N.ICU 18:12
PROVIDERS: ADMIT Internal Medicine; ATTEND Internal Medicine Nephrology
PROC: EGDWPEG (ICD-10-PCS; 2019-03-28 11:50)